=== PATIENT | male | born 1940 | race Caucasian/White ===

== ENCOUNTER → 2016-08-19 | Outpatient (CLI) | payer OTHER | LOC: MMPC 11:11 | PROVIDERS: ATTEND Internal Medicine | DX: I10 Essential (primary) hypertension (principal); N40.1 Benign prostatic hyperplasia with lower urinary tract symptoms; M81.0 Age-related osteoporosis without current pathological fracture; H35.30 Unspecified macular degeneration | CPT/HCPCS: 99214; G0463 ==

== ENCOUNTER → 2016-09-24 | Outpatient (CLI) | payer OTHER | LOC: MMPC 11:11 | PROVIDERS: ATTEND Internal Medicine | DX: K52.1 Toxic gastroenteritis and colitis (principal) | CPT/HCPCS: 99213; G0463 ==

== ENCOUNTER → 2016-11-12 | Outpatient (CLI) | payer OTHER | LOC: MMPC 11:11 | PROVIDERS: ATTEND Internal Medicine | DX: M81.0 Age-related osteoporosis without current pathological fracture (principal) | CPT/HCPCS: G0463; J0897 ==

== ENCOUNTER → 2017-02-11 | Outpatient (CLI) | payer OTHER ==
[2017-02-11 09:31] LABS: BASOPHILS # (AUTO) 0.05 10*3/UL; EOSINOPHILS # (AUTO) 0.11 10*3/UL; EOSINOPHILS % (AUTO) 2.2 % (0-8); HEMATOCRIT 43.9 % (42.0-52.0); HEMOGLOBIN 13.9 g/dL (14.0-18.0); LYMPHOCYTES # (AUTO) 1.43 10*3/uL; MEAN CORPUSCULAR HEMOGLOBIN 28.9 PG (27-31); MEAN CORPUSCULAR HGB CONC 31.7 g/dL (33-37); MEAN CORPUSCULAR VOLUME 91.3 FL (80-90); NEUTROPHILS % (AUTO) 58.1 % (50-80); RED BLOOD COUNT 4.81 10^6/uL (4.70-6.10)
[2017-02-11 09:53] LABS: CHOL/HDL RATIO 2.4 RATIO (0-4.0)
[2017-02-11 10:31] LABS: PLATELET MORPHOLOGY COMMENT NORMAL MORPHOLOGY (NORM); RBC MORPHOLOGY COMMENT NORMAL MORPHOLOGY (NORM); WBC MORPHOLOGY COMMENT NORMAL MORPHOLOGY (NORM)
== END ==
LOC: LAB 08:31
PROVIDERS: ATTEND Internal Medicine
DX: I10 Essential (primary) hypertension (principal); E03.9 Hypothyroidism, unspecified; M81.0 Age-related osteoporosis without current pathological fracture; N40.1 Benign prostatic hyperplasia with lower urinary tract symptoms; R35.1 Nocturia; Z12.5 Encounter for screening for malignant neoplasm of prostate
CPT/HCPCS: 36415; 80053; 80061; 82306; 84443; 85025; G0103

== ENCOUNTER → 2017-02-17 | Outpatient (CLI) | payer OTHER | LOC: MMPC 11:11 | PROVIDERS: ATTEND Internal Medicine | DX: I10 Essential (primary) hypertension (principal); E03.9 Hypothyroidism, unspecified; N40.1 Benign prostatic hyperplasia with lower urinary tract symptoms; E87.8 Other disorders of electrolyte and fluid balance, not elsewhere classified; H35.30 Unspecified macular degeneration; H40.9 Unspecified glaucoma; H91.91 Unspecified hearing loss, right ear | CPT/HCPCS: 69209 ×2; 99214; G0463 ==

== ENCOUNTER → 2017-03-19 | Outpatient (CLI) | payer OTHER | LOC: MMPC 09:00 | DX: R51 Headache (principal); I73.89 Other specified peripheral vascular diseases | CPT/HCPCS: 99212; G0463 ==

== ENCOUNTER 2017-05-19 17:13 | Inpatient (IN) ==
[2017-05-19] MEDS ORDERED: Sodium Chloride 0.9% 1,000 ML PRIMARY IV ONE (17:38)
[2017-05-19] MEDS ORDERED: NORMAL SALINE 10 ML SYRINGE FLUSH IVP PRN (17:38)
[2017-05-19 17:45] LABS: BASOPHILS # (AUTO) 0.02 10*3/UL; BASOPHILS % (AUTO) 0.1 % (0-1); EOSINOPHILS # (AUTO) 0 10*3/UL; EOSINOPHILS % (AUTO) 0 % (0-8); Hematocrit [HCT] 40.5 % (42.0-52.0); Hemoglobin [HGB] 13.3 g/dL (14.0-18.0); LYMPHOCYTES # (AUTO) 1.11 10*3/uL; MEAN CORPUSCULAR HEMOGLOBIN 29.2 PG (27-31); MEAN CORPUSCULAR HGB CONC 32.8 g/dL (33-37); MEAN PLATELET VOLUME 10.8 FL (7.4-12.2); MONOCYTES % (AUTO) 11.4 % (5-15); NEUTROPHILS # (AUTO) 13.58 10*3/UL; NEUTROPHILS % (AUTO) 81.4 % (50-80); RED BLOOD COUNT 4.55 10^6/uL (4.70-6.10)
[2017-05-19 17:48] LABS: PLATELET MORPHOLOGY COMMENT NORMAL MORPHOLOGY (NORM); RBC MORPHOLOGY COMMENT NORMAL MORPHOLOGY (NORM); WBC MORPHOLOGY COMMENT NORMAL MORPHOLOGY (NORM)
--- NOTE | 2017-05-19 17:52 | EKG ---
[address] [address] Measurements Intervals [place] Rate: 88 P: 74 MI: 179 QRS: 84 QRSD: 97 T: 73 QT: 347 QTc: 392 Interpretive Statements SINUS RHYTHM ST CHANGES OF EARLY REPOLARIZATION Compared to ECG 01/26/2014 09:53:38 No significant change Electronically Signed On 05-20-17 08:49:57 MDT by Dion Shabazz [email or web address]
[2017-05-19 18:25] LABS: BLOOD UREA NITROGEN 26 mg/dL (7-22); MAGNESIUM 3.2 mg/dL (1.6-2.4); SERUM ALBUMIN 3.5 g/dL (3.5-4.8)
--- NOTE | 2017-05-19 18:49 | DI ---
CT Head WO Contrast,05/19/2017 5:38 PM: Clinical History: Status post fall on Friday. Previous Exam: July 08, 2014 Findings: Multiple helically acquired CT images are obtained through the brain without contrast, and demonstrat e diffuse age-related volume loss. There is no mass, hemorrhage or midline shift. The surrounding sof t tissue and osseous structures are unremarkable. There are few vascular calcifications noted. Impression: No acute intracranial pathology.
--- NOTE | 2017-05-19 20:50 | DI ---
EXAM: CT Angiography Chest Without and With Intravenous Contrast CLINICAL HISTORY: fall, elevated d-dimer: TECHNIQUE: Axial computed tomographic angiography images of the chest without and with intravenous contrast using pulmonary embolism protocol. Coronal and sagittal reformats were obtained. MIP reconstructed images were created and reviewed. COMPARISON: No relevant prior studies available. FINDINGS: Pulmonary arteries: Unremarkable. No pulmonary embolism. Aorta: No thoracic aortic aneurysm. Lungs: Unremarkable. No mass. No consolidation. Pleural space: Unremarkable. No significant effusion. No pneumothorax. Heart: Trace pericardial fluid. . Bones/joints: Chronic fracture deformity of the upper sternum Lymph nodes: Few calcified mediastinal and hilar lymph nodes, likely sequelae of prior granulomatous disease. Several small mediastinal lymph nodes are present, none pathologically enlarged. Gallbladder and bile ducts: Gallbladder is markedly distended with surrounding pericholecystic fat stranding and trace fluid. Findings suspicious for acute cholecystitis. Spleen: Several small calcified granulomas in the Spleen. IMPRESSION: 1. No pulmonary embolism detected. 2. Gallbladder is markedly distended with surrounding pericholecystic fat stranding and trace fluid. Findings are suspicious for acute cholecystitis. Correlate with symptoms and consider ultrasound for further evaluation.
[2017-05-19 21:19] LABS: BILIRUBIN,URINE NEGATIVE (NEG); CLARITY,URINE CLEAR (CLEAR); COLOR,URINE YELLOW (Y); GLUCOSE, URINE (UA) NEGATIVE (NEG); NITRATE,URINE NEGATIVE (NEG); OCCULT BLOOD,URINE NEGATIVE (NEG); PROTEIN,URINE TRACE mg/dl (NEG); URINE SAMPLE TYPE VOIDED SPECIMEN; UROBILINOGEN,URINE 0.2 EU/dL (0.2)
--- NOTE | 2017-05-19 23:59 | PDOC ---
HPI - History of Present Illness Date and Time of Service: 05/20/2017 12:47 AM Chief Complaint: Fell multiple times, weak History of Present Illness: This is a 76 years old male with medical history significant for history of hypertension, gout,, macular degeneration, hearing loss, hypothyroidism who was brought to the hospital by an ambulance because he fell multiple times. He said he has issues with his balance secondary to her large nerve neuropathy being going on for quite a few years but over the last 3 days been falling more often. He is struggling to get up. In addition he did report that on Friday he went to the urgent clinic and then to the ER as he was having some abdominal discomfort and he thought that he was constipated they gave him magnesium citrate. He did have some loose stool today. He is having trouble remembering the exact timing of events. He is not sure whether he had fever or not. Today because of the multiple fall he was brought to the ER, evaluation revealed elevated white count, hyponatremia CT of the chest done for elevated d-dimer was negative for PE but showed distended gallbladder an ultrasound was done and that showed distended gallbladder with the edema. The patient himself is denying abdominal pain now no nausea no vomiting. Past Medical History Medical History: 1. Hypertension. 2. Hypothyroidism. 3. Osteoporosis. 4. Macular degeneration. 5. BPH. 6. Hearing loss. 7. Depression. 8. History of large fiber neuropathy Surgical History: 1.bilateral stapedectomy with replacement stapes. 2. Dilatation of distal esophagus Past Social History: Patient lives by himself, doesn't drink, no drugs. Doesn' t smoke. Tobacco Use: Never Smoker In the Past 12 Months, Have Used or Abuse Any of the Following Substance: None Alcohol Use: Rarely Medication / Allergies Home Medications: Home Medications Medication Instructions Recorded Confirmed Type Dorzolamide HCl/Timolol Maleat 1 drp OP BID 1 Days drp 10/25/11 05/20/17 History [Cosopt Eye Drops] Betaxolol HCl [Betoptic S] 2 drp OP BID 30 Days drp 09/22/12 05/20/17 History Guaifenesin [Mucinex] 1,200 mg PO BID #1 bottle 11/12/12 05/20/17 History Finasteride 5 mg PO DAILY tab 07/08/14 05/20/17 History Ranibizumab [Lucentis] 0.5 mg INVTRL MONTHLY ml 07/08/14 05/20/17 History Denosumab [Prolia] 60 mg SUBCUT ONCE #1 ml 08/19/16 05/20/17 History Levothyroxine Sodium 75 mcg PO DAILY #90 tab 08/19/16 05/20/17 History Lisinopril 1 tab PO DAILY #90 tab 08/19/16 05/20/17 Rx Travoprost [Travatan Z] 1 drp OP DAILY drp 08/19/16 05/20/17 History Tobramycin Sulf/Dexamethasone 1 drp OP q48 drp 02/17/17 05/20/17 History [Tobradex Eye Drops] Citalopram Hydrobromide 20 mg PO DAILY 05/19/17 05/20/17 History [Citalopram Hbr] Allergies/Adverse Reactions: Allergies 3 Allergy/AdvReac Type Severity Reaction Status Date / Time Cucumbers Allergy Mild NAUSEA Uncoded 05/20/17 08:44 Melons Allergy Mild NAUSEA Uncoded 05/20/17 08:44 Review of Systems - Review of Systems All Systems: Reviewed & No Additional Complaints Except as Stated Exam - General General Appearance: No Acute Distress, Cooperative Additional General Exam Details: Patient is hard of hearing - Head Head Exam: Normal Inspection - Eye Eye Exam: POSITIVE: Normal Appearance - ENT ENT Exam: POSITIVE: Normal Exam - Neck Neck Exam: Normal Inspection - Respiratory Respiratory Exam: POSITIVE: Clear to Auscultation - Bilaterally - Cardiovascular Cardiovascular Exam: POSITIVE: RRR - GI/Abdominal GI/Abdominal Exam: POSITIVE: Normal Bowel Sounds, Non Tender, Non Distended, Soft - Rectal Rectal Exam: POSITIVE: Deferred - External Exam: POSITIVE: Deferred - Extremities Extremities Exam: POSITIVE: Normal Inspection - Back Back Exam: POSITIVE: Normal Inspection - Neurological Neurological Exam: POSITIVE: Alert, CN II-XII Intact, Moves All Extremities Equally Additional Neurological Exam Details: He knows the day, he thought it was June and he did know the year. He knows he is in the hospital. still have problems telling events over the previous 2 days - Psychiatric Psychiatric Exam: POSITIVE: Normal Affect - Integumentary Integumentary Exam: POSITIVE: Normal Color Results - Labs CBC and BMP: 05/20/17 04:12 05/20/17 04:12 - EKG Data -: EKG Interpreted by Me Rate: Normal EKG Shows Normal: Sinus Rhythm - EKG Data EKG Interpretation: Other (Changes of early repolarization) - Imaging Status: Report Reviewed by Me (CT of the chest showed no PE, gallbladder is markedly distended with surrounding pericholecystic fat stranding and trace fluid. Finding is suspicious for acute cholecystitis Ultrasound abdomen showed distended gallbladder with gallstones and gallbladder sludge. Gallbladder wall appears edematous. Finding are suspicious for acute cholecystitis CT of the head was negative) Assessment and Plan - Patient Problems (1) Multiple falls Current Visit: Yes Status: Acute Comment: This may be secondary to his underlying disease such as her neuropathy. or may be a superimposed condition not sure whether he has a cholecystitis but will give him fluid in treat with antibiotics for now. Code(s): R29.6 - Repeated falls (2) Cholecystitis Current Visit: Yes Status: Acute Comment: The patient having trouble remembering events, apparently did have some issues with his abdomen on Friday he went to the ER but he was attributing that to constipation. He is denying abdominal pain now no nausea. However his white count is elevated, his CRP is elevated, the CT of the chest revealed distended gallbladder and the ultrasound also showed distended gallbladder with sludge and cholelithiasis. I think will give him antibiotics may consult surgery in the morning. Clinically however there is no tenderness in the abdomen so it's hard to fit the imaging and the lab with the lack of symptoms Code(s): K81.9 - Cholecystitis, unspecified (3) Hypertension Current Visit: Yes Status: Acute Comment: Same medications Code(s): I10 - Essential (primary) hypertension (4) Hypothyroidism Current Visit: Yes Status: Acute Comment: Same med Code(s): E03.9 - Hypothyroidism, unspecified
--- NOTE | 2017-05-20 00:07 | DI ---
EXAM: US Abdomen Limited, Right Upper Quadrant CLINICAL HISTORY: Distended gallbladder on CT TECHNIQUE: Real-time ultrasound of the right upper quadrant with image documentation. COMPARISON: CTA chest 05/19/17 FINDINGS: Limitations: Exam limited due to overlying bowel gas. Liver: No focal hepatic mass detected. Gallbladder: Gallbladder is distended with sludge and gallstones. Gallbladder wall is thickened (measured as 3 mm, although there appears to be other areas where the wall is more edematous). Per pbx technician, negative sonographic [place]thing[place] sign. Common bile duct: No biliary dilatation. Common duct within normal limits, 3 mm in diameter. Pancreas: Not visualized. Right kidney: Not imaged. IMPRESSION: 1. Limited exam due to overlying bowel gas. 2. Distended gallbladder with gallstones and gallbladder sludge. Gallbladder wall appears edematous. Findings are suspicious for acute cholecystitis. Correlate with symptoms and consider HIDA scan if necessary for further evaluation. 3. No biliary dilatation.
--- NOTE | 2017-05-20 01:04 | PDOC ---
General Adult HPI - General Chief Complaint: General Medical Stated Complaint: fall, weakness Date Seen by Provider: 05/19/17 Time Seen by Provider: 17:35 Source: POSITIVE: Patient, EMS Exam Limitations: POSITIVE: No limitations Nurse's Notes Reviewed & Considered: Yes EMS Report Reviewed & Considered: Verbal - History of Present Illness Initial Comment: The patient is a 76-year-old male. He is brought to the emergency room by ambulance from his residence. The patient lives alone. He states that today he fell at home 3 times and was unable to get up. He called his home health nurse, who called the patient's primary care physician, Dr. Lara, who called the ambulance that brought the patient into the emergency room. Patient states that he also fell once yesterday. Patient denies any loss of consciousness. He states that he chest "he is too weak to stand up and he has been falling. He does states he has a mild circumferential headache. He denies any chest or abdominal pain. He states he's not injured himself in the falls, although he does complain of some "soreness to the knees and elbows "from trying to get up from the floor. Patient denies any fevers or chills. No nausea, vomiting, diarrhea, melena, hematochezia, or hematemesis. No difficulty speaking. He states he has diminished vision due to macular degeneration and glaucoma. No focal motor deficits. He states he is just "weak all over ". Have you received a tetanus shot in the past 10 years?: No Body Location Affected: REPORTS: Head (Mild headache), Other (Generalized weakness as above) Timing: REPORTS: Intermittent (Return episodes of falling and not able to get up as above.) Duration: <24 hours Severity: Moderate Quality: REPORTS: "Pain" (Mild circumferential headache) Context: REPORTS: Standing (Episodes of falling recur when he stands up and attempts to ambulate.), Fall Modifying Factors: worse with: Nothing, Analgesics, Antacids, Breathing, Coughing, Defecating, Vomiting, Eating, Exercise, Lying down, Urinating, Palpation, Movement, Rest, Upright Position, Walking, Remaining Still, Other Similar Symptoms Previously: No Recent Care Received: REPORTS: Denies Any Prior Injuries Related to Current Complaint?: No - Patient Home Medications Home Medications: Home Medications Dorzolamide HCl/Timolol Maleat [Cosopt Eye Drops] 1 drp OP BID 1 Days drp 10/24 Betaxolol HCl [Betoptic S] 2 drp OP BID 30 Days drp 09/22/12 Guaifenesin [Mucinex] 1,200 mg PO BID #1 bottle 11/12/12 Finasteride 5 mg PO DAILY tab 07/08/14 Ranibizumab [Lucentis] 0.5 mg INVTRL MONTHLY ml 07/08/14 Denosumab [Prolia] 60 mg SUBCUT ONCE #1 ml 08/19/16 Levothyroxine Sodium 75 mcg PO DAILY #90 tab 08/19/16 Lisinopril 1 tab PO DAILY #90 tab 08/19/16 Travoprost [Travatan Z] 1 drp OP DAILY drp 08/19/16 Tobramycin Sulf/Dexamethasone [Tobradex Eye Drops] 1 drp OP q48 drp 02/17/17 Citalopram Hydrobromide [Citalopram Hbr] 20 mg PO DAILY 05/19/17 - Patient Allergies Allergies/Adverse Reactions: Allergies 3 Allergy/AdvReac Type Severity Reaction Status Date / Time Cucumbers Allergy Mild NAUSEA Uncoded 05/20/17 00:18 Melons Allergy Mild NAUSEA Uncoded 05/20/17 00:18 Past Medical History - heen HEENT History: Glaucoma Additional HEENT History: DENIES MENIERE'S BUT REPORTS VERTIGO Cardiovascular History: Hypertension Respiratory History: Denies History Gastrointestinal History: Denies History Genitourinary History: Denies History Endocrine History: Hypothyroidism Musculoskeletal History: Denies History Prosthesis or Implant: No Neurological History: Other (please comment) Additional Neurological History: VERTIGO/ LOSS OF PROPRIOCEPTION, STAPEES REPLACED BILAT EARS Blood Disorders: Denies History Psychiatric History: Depression History of Sexually Transmitted Diseases: No Male Reproductive History: Denies History Cancer History: Denies History In Past Year Been Physically Harmed or Verbally Threatened: No History of MDRO: No History of Other Communicable Diseases: No Tobacco Use: Never Smoker Alcohol Use: Rarely Type of alcohol normally used: Beer In the Past 12 Months, Have Used or Abuse Any Substance: None Previous Surgical History: Yes Type / Date of Surgery: STAPEES REPLACED BILAT EARS, LAZER SURGERY FOR DETACHED RETINA, T&A Anesthesia Reactions: No Significant Family History: No pertinent family hx Past Medical History Reviewed: Reviewed - No Changes ROS - Limitations ROS Limitations: No Limitations Constitution: REPORTS: Weakness Cardiovascular: REPORTS: Denies Cardiac Symptoms Respiratory: REPORTS: Denies Resp Symptoms Neurological: REPORTS: Headache Gastrointestinal: REPORTS: Denies GI Symptoms Endocrine: REPORTS: Denies Symptoms Musculoskeletal: REPORTS: Denies MS Symptoms Genitourinary: REPORTS: Denies Symptoms Eyes: REPORTS: Denies Symptoms ENT: REPORTS: Denies Symptoms Skin: REPORTS: Denies Skin Symptoms Lympathic: REPORTS: Denies Lympathic Symptoms Immunologic: POSITIVE: Denies Symptoms Psychiatric: POSITIVE: Denies Psych Symptoms General Adult Exam - General Appearance General Appearance: POSITIVE: Alert, Cooperative, No Acute Distress, No Evidence of Trauma - HEENT HEENT: POSITIVE: Head Inspection Nml, Eyes Inspection Nml, Ears Inspection Nml, Nose Inspection Nml, Oral/Dental Inspect. Nml, Pharynx Inspect. Nml, PERRL, EOMI - Pupils Pupil Size: 3 mm: Bilateral - Neck Neck: POSITIVE: Normal Inspection, Thyroid Normal - Respiratory Respiratory: POSITIVE: No Respiratory Distress, Breath Sounds Normal, Chest Non- Tender - Cardiovascular Cardiovascular: POSITIVE: Regular Rate & Rhythm, No Murmur, No Gallop, PMI Normal Peripheral Pulses: Radial (R): 2+, Radial (L): 2+ - Abdomen Abdomen: Soft: (All Quadrants), Normal Bowel Sounds: (All Quadrants), Denies Tenderness: (All Quadrants), No Splenomegaly: (All Quadrants), No Hepatomegaly: (All Quadrants), No Guarding: (All Quadrants), No Rebound: (All Quadrants), No Palpable Pulse: (All Quadrants), No Palpabale Mass: (All Quadrants), No Distention: (All Quadrants), No Rigidity: (All Quadrants) - Back Back: POSITIVE: Normal Inspection - Skin Skin: POSITIVE: Normal Color, Warm, Dry, No Rash - Extremities Extremity: Non-Tender: (All Extremities), Normal ROM: (All Extremities), Normal Inspection: (All Extremities) - Neurological / Psychological Neurological: POSITIVE: Affect Apporpriate, hospital internship Normal As Tested, Motor Normal, Sensation Normal, Disoriented To Time, Weakness (Generalized weakness), Other ( Patient unable to accurately identify the month. He does not recall who the president is.). NEGATIVE: Disoriented To Person, Disoriented To Place General Adult Progress - Results Reviewed by me Xrays/CTs/US Reviewed by me: Yes Discussed with Radiologist: Yes Radiology Findings: Chest x-ray normal; CT a chest normal except for incidentally noted possible inflammation around the gallbladder. Subsequent gallbladder ultrasound shows gallbladder to be distended with gallstones and sludge. Gallbladder wall appears edematous. Patient does not, however, have any abdominal pain. CT scan head without contrast normal. Lab Results Reviewed by Me: Yes CBC and BMP: 05/19/17 17:05 05/19/17 18:00 EKG Interpreted/Reviewed By Me:: Yes (normal) EKG Interpretation:: POSITIVE: Normal Sinus Rhythm, Normal Rate, Normal Intervals, Normal [place], Normal QRS, Normal ST/T - Patient's Progress Pain Medication Addressed: POSITIVE: Not Applicable Re-Examine Time: 20:00 Re-Examine Comment: Patient resting comfortably; abdominal examination repeated in view of CT scan results; patient denies any pain on firm palpation. Hepatic enzymes normal except for mildly elevated alkaline phosphatase and a total bilirubin of 1.4 Re-Examine Time:: 23:10 Re-Examine Comment: Case discussed with the hospitalist, Dr. Cornelius. Patient admitted to Dr. Cornelius for further evaluation and treatment. Status: POSITIVE: Unchanged, Re-Examined Antibiotics Given: No - Consult Consult (If Yes, Name of Consulting MD & Time Called): Yes (Dr. Cornelius, hospitalist, [id number]) Consulting MD will see pt:: POSITIVE: [facility] [place] Counseled: POSITIVE: Patient, RE: Lab Results, RE: Radiology Results, RE: DX, RE : Need for F/U Patient Care Time - Estimated PCT Patient Care Time (In Minutes): 75 Vital Signs - Recent Vital Signs Vital Signs: Vital Signs (Last 8 hours) Temp Pulse Resp BP Pulse Ox 05/19/17 17:13 99.5 F 94 16 123/75 94 Discharge Clinical Impression: Falls frequently, Weakness Discharge Disposition: Admit to Inpatient Condition: Fair Date Decision to Admit to Inpatient: 05/19/17 Time Decision to Admit to Inpatient: 22:55
[2017-05-20] MEDS: Ertapenem Inj 1 GM in Sodium Chloride 0.9% 100 ML IV SCH (01:35)
[2017-05-20] MEDS: Sodium Chloride 0.9% 1,000 ML PRIMARY IV SCH ×3 (01:35→23:07)
[2017-05-20 04:27] LABS: BASOPHILS # (AUTO) 0.01 10*3/UL; BASOPHILS % (AUTO) 0.1 % (0-1); EOSINOPHILS # (AUTO) 0 10*3/UL; EOSINOPHILS % (AUTO) 0 % (0-8); Hematocrit [HCT] 38.7 % (42.0-52.0); Hemoglobin [HGB] 12.7 g/dL (14.0-18.0); LYMPHOCYTES # (AUTO) 1.07 10*3/uL; MEAN CORPUSCULAR HEMOGLOBIN 29.1 PG (27-31); MEAN CORPUSCULAR HGB CONC 32.8 g/dL (33-37); MEAN CORPUSCULAR VOLUME 88.8 FL (80-90); MEAN PLATELET VOLUME 10.5 FL (7.4-12.2); MONOCYTES # (AUTO) 1.44 10*3/UL (0.3-0.8); MONOCYTES % (AUTO) 12.4 % (5-15); NEUTROPHILS # (AUTO) 9.08 10*3/UL; RED BLOOD COUNT 4.36 10^6/uL (4.70-6.10)
[2017-05-20] MEDS: LEVOTHYROXINE 75 MCG TABLET PO SCH (04:31)
[2017-05-20 04:40] LABS: BLOOD UREA NITROGEN 21 mg/dL (7-22); SERUM ALBUMIN 3.1 g/dL (3.5-4.8)
[2017-05-20 04:42] LABS: PLATELET MORPHOLOGY COMMENT NORMAL MORPHOLOGY (NORM); RBC MORPHOLOGY COMMENT NORMAL MORPHOLOGY (NORM); WBC MORPHOLOGY COMMENT NORMAL MORPHOLOGY (NORM)
[2017-05-20] MEDS: CITALOPRAM 20 MG TABLET PO SCH (08:24)
[2017-05-20] MEDS: FINASTERIDE 5 MG TABLET PO SCH (08:24)
[2017-05-20] MEDS: LISINOPRIL 5 MG TABLET PO SCH (08:24)
[2017-05-20] MEDS ORDERED: BETAXOLOL HCL OP SCH (09:00)
--- NOTE | 2017-05-20 09:03 | DI ---
XR CXR 2VW PA/LAT,05/19/2017 5:38 PM: Clinical History: Weakness Previous Exam: January 26, 2014 Findings: PA and lateral views of the chest are obtained, and demonstrate clear lungs. The cardiomediastinum an d bony thorax are unremarkable. There is stable degenerative changes of the spine. Impression: No acute cardiopulmonary disease.
--- NOTE | 2017-05-20 09:25 | PDOC(PROG) ---
Date and Time of Service: 05/20/2017 9:29 AM Interval History: Objective Patient is denying complaint, there is no abdominal pain, no nausea. No chest pain, no shortness of breath. Objective : Data - Labs CBC and BMP: 05/20/17 04:12 05/20/17 04:12 Objective : Exam - General General Appearance: No Acute Distress, Cooperative - Head Head Exam: Normal Inspection - Eye Eye Exam: Normal Appearance - ENT ENT Exam: Normal Exam - Neck Neck Exam: Normal Inspection - Respiratory Respiratory Exam: Clear to Auscultation - Bilaterally - Cardiovascular Cardiovascular Exam: RRR - GI/Abdominal GI/Abdominal Exam: Normal Bowel Sounds, Non Tender, Non Distended, Soft - Rectal Rectal Exam: Deferred - External Exam: Deferred - Extremities Extremities Exam: Normal Inspection - Back Back Exam: Normal Inspection - Neurological Neurological Exam: Alert, CN II-XII Intact Additional Neurological Exam Details: He is somewhat weak on the left compared to the right lower extremities, reflexes are depressed. - Psychiatric Psychiatric Exam: Normal Affect Assessment and Plan - Patient Problems (1) Multiple falls Current Visit: Yes Status: Acute Comment: May be secondary to neuropathy or there may be a superimposed condition. Not sure whether he has a acute cholecystitis as he is denying pain in his abdomen and it's not tender. I did speak with the Dr. Gomez he will see him. Code(s): R29.6 - Repeated falls (2) Cholecystitis Current Visit: Yes Status: Acute Comment: His clinical symptoms now does not match the imaging findings. I elected to start him on antibiotics I think will continue until surgical evaluation. We will keep him on clear for now. Code(s): K81.9 - Cholecystitis, unspecified (3) Hypertension Current Visit: Yes Status: Acute Comment: Same medications Code(s): I10 - Essential (primary) hypertension (4) Hypothyroidism Current Visit: Yes Status: Acute Comment: Same med Code(s): E03.9 - Hypothyroidism, unspecified
--- NOTE | 2017-05-20 11:08 | CONSULT ---
Consult Note - Consult Consult Date: 05/20/17 Reason for Consult: PreOp Consulation : General Surgery Requesting Physician: Dr. Cornelius Primary Care Provider: Raghav Lara MD - History of Present Illness History of Present Illness: The patient is a 76-year-old male in asked to see for possible acute cholecystitis. Patient reports he's had some minor abdominal issues for the last several years. Reviewing the records he had an ultrasound back in January of 2014 which showed some flakes and sludge in the gallbladder. The gallbladder was distended. The wall was slightly thickened but within normal limits. The common bile duct was 3 mm in size. On Friday the patient presented to the open access clinic followed by the emergency room for some mild abdominal discomfort and a feeling of being constipated. He had an abdominal x-ray which is read as normal but there was a lot of stool within the bowel. He took some magnesium citrate and got back on his MiraLAX with good results. He went home. A home manager reported he was falling more than usual at home on Friday and recommended he go to the emergency room. The patient presented to the emergency room for the same. He was seen for falling and weakness. He had a CT of his head which was unremarkable. Her lab work showed an elevation of his white count at 16,400. Get a minor elevation of his bilirubin to 1.4 and a minor elevation of his alkaline phosphatase to 150. His AST and ALT were normal. He had an elevated C -reactive protein and an elevated d-dimer. He had a CTA of his chest which showed no evidence of a pulmonary embolism but they commented that his gallbladder was distended and looked thick walled. Subsequent ultrasound showed a distended gallbladder with a 3 mm wall and a lot of sludge in the gallbladder. The common bile duct was normal. There is possibly a solitary stone floating in the bile. He had a sonographically negative Worthington sign. I have asked our local radiologist to compare the 2 ultrasounds. There is possibly increased wall thickening. He feels the gallbladder looks abnormal but there is no obvious acute cholecystitis. A 3 mm wall is technically within normal limits of thickness. The patient was hydrated overnight. He was given a gram of Invanz. This morning his white count has decreased to 11,000 range. His bilirubin and alkaline phosphatase are down as well. I am asked to see him about whether or not he has acute cholecystitis or not. Patient reports he is having no abdominal pain. He is hungry. He feels like he needs to go to the bathroom. He does not feel bloated. Review of Systems - Gastrointestinal Gastrointestinal / Abdominal: DENIES: Negative System Review, Nausea, Vomiting, Diarrhea, Constipation, Abdominal Pain, Bloody Stool, Poor Appetite, Heartburn, Regurgitation, Bloating, Lactose Intolerance, Melena, Bright Red Blood per Rectum, Other, See HPI Past Medical History Medical History: 1. Hypertension. 2. Hypothyroidism. 3. Osteoporosis. 4. Macular degeneration. 5. BPH. 6. Hearing loss. 7. Depression. 8. History of large fiber neuropathy Surgical History: 1. Bilateral stapedectomy with replacement stapes. 2. Dilatation of distal esophagus. 3. Colonoscopy 2. Normal by report. 4. Bilateral cataract extractions. Past Social History: Patient lives by himself, doesn't drink, no drugs. Doesn' t smoke. Tobacco Use: Never Smoker In the Past 12 Months, Have Used or Abuse Any of the Following Substance: None Alcohol Use: Rarely Medication / Allergies Home Medications: Home Medications Medication Instructions Recorded Confirmed Type Dorzolamide HCl/Timolol Maleat 1 drp OP BID 1 Days drp 10/25/11 05/20/17 History [Cosopt Eye Drops] Betaxolol HCl [Betoptic S] 2 drp OP BID 30 Days drp 09/22/12 05/20/17 History Guaifenesin [Mucinex] 1,200 mg PO BID #1 bottle 11/12/12 05/20/17 History Finasteride 5 mg PO DAILY tab 07/08/14 05/20/17 History Ranibizumab [Lucentis] 0.5 mg INVTRL MONTHLY ml 07/08/14 05/20/17 History Denosumab [Prolia] 60 mg SUBCUT ONCE #1 ml 08/19/16 05/20/17 History Levothyroxine Sodium 75 mcg PO DAILY #90 tab 08/19/16 05/20/17 History Lisinopril 1 tab PO DAILY #90 tab 08/19/16 05/20/17 Rx Travoprost [Travatan Z] 1 drp OP DAILY drp 08/19/16 05/20/17 History Tobramycin Sulf/Dexamethasone 1 drp OP q48 drp 02/17/17 05/20/17 History [Tobradex Eye Drops] Citalopram Hydrobromide 20 mg PO DAILY 05/19/17 05/20/17 History [Citalopram Hbr] Allergies/Adverse Reactions: Allergies 3 Allergy/AdvReac Type Severity Reaction Status Date / Time Cucumbers Allergy Mild NAUSEA Uncoded 05/20/17 08:44 Melons Allergy Mild NAUSEA Uncoded 05/20/17 08:44 Results - Labs CBC and BMP: 05/20/17 04:12 05/20/17 04:12 - Imaging Status: Image Reviewed by Me (And discussed with the radiologist. See history of present illness.), Report Reviewed by Me Exam - Vitals Vital Signs: Vital Signs Temperature 98.6 F Temperature Source Temporal Artery Scan Pulse Rate [Pulse Oximeter 87 Right] Pulse Rate 89 Respiratory Rate 20 Blood Pressure [Left Arm] 142/70 Blood Pressure 153/93 Pulse Ox 92 Oxygen Delivery Method Room Air Height 5 ft 7 in Weight 143 lb 3.2 oz - General General Appearance: No Acute Distress, Cooperative - Respiratory Respiratory Exam: POSITIVE: Clear to Auscultation - Bilaterally, Breathing Non Labored - Cardiovascular Cardiovascular Exam: POSITIVE: RRR, No Murmur - GI/Abdominal GI/Abdominal Exam: POSITIVE: Normal Bowel Sounds, Non Tender, Non Distended, Soft, No Masses, No Organomegaly Additional GI/Abdominal Exam Details: Total benign abdominal exam. No tenderness. No Worthington's. - Neurological Neurological Exam: POSITIVE: Alert, Oriented x 3 - Psychiatric Psychiatric Exam: POSITIVE: Normal Affect, Normal Mood Assessment and Plan - Patient Problems (1) Abnormal gallbladder ultrasound Current Visit: Yes Status: Chronic Priority: Medium Comment: In actuality his gallbladder ultrasound was not that much different than it was in January 2014. Patient has no clinical evidence of acute cholecystitis. I think his gallbladder is abnormal and should give some consideration to elective cholecystectomy. That does not have to be done acutely. I think he can recover from his current hospitalization and see me in the office. We can then discuss the feasibility of surgery with his primary care provider, Dr. Lara, and he can discuss it with his family as well. He is not interested in surgery that is not absolutely necessary. I don't think there is any indication that he needs acute surgery at this time. Would consider one more dose of the antibiotics as he did have an elevated white count. We will check his liver function tests again in the morning. I will check him again tomorrow. At the present time will recommend outpatient follow- up in the next week or two following discharge. Code(s): R93.2 - Abnormal findings on diagnostic imaging of liver and biliary tract
[2017-05-20] MEDS ORDERED: POLYETHYLENE GLYCOL 3350 17 GM POWDER PO PRN (12:16)
--- NOTE | 2017-05-20 16:47 | OTI REPORT ---
Thank you for the referral of Howard Persaud. He was seen on 05/20/17 for an occupational therapy inpatient evaluation secondary to falls at home. SUBJECTIVE: The patient is a 76-year-old male who is being seen today secondary to having multiple falls at home. The last week the patient has had a lot of falls. The patient lives at home by himself. He states that he has been in his home since the 1970s. It is a single story home. The patient states about a month ago he felt his legs became weaker; he does have bad neuropathy. The patient states approximately 20 years ago he had to have a stapes surgery where they took out his stapes and replaced them and he states ever since then his balance has been very poor. 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 His right eye has better vision but it is not great. The patient does wear glasses for distance. The patient does have a tub/shower combination. [employer] has set up a shower chair, a hand held shower hose, and three grab bars. He says he has not been having difficulty getting off of his standard toilet. The patient reports that he has three different walkers; one for his home, one for the car, and one for out in public. He reports that recently he has been driving; however, he only drives during the day. The patient has been hiring the [employer] folks to help him run his errands and to get to his appointments in [place]. The patient has also hired them to do some of his outdoor work. The [employer] comes in once a week to do his cleaning. The patient reports he does his own laundry and some of the cooking; however, he states he likes to eat either at the hospital, the [facility], or out at restaurants. Prior to this admission the patient had been doing his own grocery shopping, but he reports he may need more assistance with this. When taking his medications, sometimes he uses a magnifying glass to look at the medications, but he says he is in charge of them. He states he basically uses his tactile sensory components to perform most task throughout his day. The patient reports he is getting more unsafe. He states his right hand and fingers "freeze" and get really stiff. PAST MEDICAL HISTORY: Past medical history can be found in the patient's medical record. OBJECTIVE FINDINGS: General observations: The patient was sitting in chair upon the therapist's arrival. Range of motion: The patient's upper extremity range of motion is within functional limits bilaterally. Strength: Strength for shoulder flexion was 4/5, shoulder abduction was 3+/5, elbow flexion/extension was 4/5, and wrist flexion/extension was 4/5. Activities of daily living: The patient was able to don and doff his socks while sitting in recliner chair; however, he reports that he has leaned over too far and has fallen out of the chair when putting on his socks. The patient stated, "I never know when I'm vertical." When performing any task in standing , the patient requires mod to max assist to keep his balance. Transfers: The patient requires max assist for all functional transfers secondary to decreased balance. Ambulation: The patient ambulated to the bathroom for which he required max assist. He continually leaned backward and needed max assist to keep an upright posture. ASSESSMENT: The patient's vestibular system seems to have been greatly affected by his stapes surgery several years ago. At this point it is highly questionable whether the patient should be driving. The OT discussed with the patient that he will need more assistance at home; more than likely 24-hour assistance if he is able to afford this We may need to look at the [facility] based on the balance difficulties he demonstrated today. The patient agreed. He would like the case preparer and liner as well as his daughter, who is his power of civil attorney, to discuss some of his options later on. If the patient does return home, we need to look into a home evaluation. Problem List: Decreased balance Decreased ability to perform functional ADLs while in a standing position Short-Term Goals: To be met by discharge from inpatient: Patient will be able to obtain clothes and dress self with SBA. Patient will be able to complete a shower transfer and shower task with modified independence Patient will increase UE strength to 4+/5 throughout UE's. Patient will be able to complete a toilet transfer with SBA. Long-Term Goals: To be met following discharge from inpatient: Patient will be able to return home, with more assistance for ADL's and functional tasks at home 24 hours a day. Patient will be able to complete all functional transfers and ADL's with modified independence TREATMENT PLAN: Patient will be seen B.I.D during the week and one time per day over the weekend as an inpatient to address the above goals and objectives. INITIAL TREATMENT: Treatment today consisted of the initial evaluation followed by the patient completing dressing tasks while sitting edge of bed and a toilet transfer. The patient needed a lot of assistance in order to complete the toilet transfer. The patient had balance difficulties with the transfer and also when doffing and donning pants. MILAGROS
[2017-05-20] MEDS: BETAXOLOL EACH EYE SCH (20:00)
[2017-05-20] MEDS ORDERED: BETAXOLOL EACH EYE SCH (21:00)
[2017-05-21] MEDS: Ertapenem Inj 1 GM in Sodium Chloride 0.9% 100 ML IV SCH (00:56)
[2017-05-21] MEDS ORDERED: Hypromellose/Glycerin/PEG 400 Ophth Soln 15 ML DROPS EACH EYE PRN (01:44)
[2017-05-21] MEDS: ACETAMINOPHEN 325 MG TABLET PO PRN (04:11)
[2017-05-21] MEDS: LEVOTHYROXINE 75 MCG TABLET PO SCH (04:42)
[2017-05-21 05:13] LABS: BASOPHILS # (AUTO) 0.01 10*3/UL; BASOPHILS % (AUTO) 0.1 % (0-1); EOSINOPHILS # (AUTO) 0.02 10*3/UL; EOSINOPHILS % (AUTO) 0.2 % (0-8); Hematocrit [HCT] 35.3 % (42.0-52.0); Hemoglobin [HGB] 11.2 g/dL (14.0-18.0); LYMPHOCYTES # (AUTO) 0.79 10*3/uL; MEAN CORPUSCULAR HEMOGLOBIN 28.7 PG (27-31); MEAN CORPUSCULAR HGB CONC 31.7 g/dL (33-37); MEAN CORPUSCULAR VOLUME 90.5 FL (80-90); MEAN PLATELET VOLUME 11.3 FL (7.4-12.2); MONOCYTES # (AUTO) 1.08 10*3/UL (0.3-0.8); MONOCYTES % (AUTO) 11.9 % (5-15); NEUTROPHILS # (AUTO) 7.13 10*3/UL; NEUTROPHILS % (AUTO) 78.8 % (50-80)
[2017-05-21 05:41] LABS: PLATELET MORPHOLOGY COMMENT NORMAL MORPHOLOGY (NORM); RBC MORPHOLOGY COMMENT NORMAL MORPHOLOGY (NORM); WBC MORPHOLOGY COMMENT NORMAL MORPHOLOGY (NORM)
[2017-05-21 05:48] LABS: BLOOD UREA NITROGEN 18 mg/dL (7-22); SERUM ALBUMIN 2.8 g/dL (3.5-4.8)
[2017-05-21] MEDS: LISINOPRIL 5 MG TABLET PO SCH (08:46)
[2017-05-21] MEDS: CITALOPRAM 20 MG TABLET PO SCH (08:46)
[2017-05-21] MEDS: FINASTERIDE 5 MG TABLET PO SCH (08:46)
[2017-05-21] MEDS ORDERED: NORMAL SALINE 10 ML SYRINGE FLUSH IVP PRN (11:24)
--- NOTE | 2017-05-21 12:28 | PDOC(PROG) ---
Interval History: Patient is doing well has no complaints no nausea vomiting or abdominal pain still feels a little weak he says he would like to go home I told him he will need another day of antibiotics and more PT and OT and according to how he feels tomorrow this could be arranged also social services coordinator are working on helping him foot some extra help in food Objective : Data - Labs CBC and BMP: 05/21/17 03:55 05/21/17 03:55 Objective : Exam - General General Appearance: Cooperative - Head Head Exam: Normal Inspection - Eye Eye Exam: Normal Appearance - Respiratory Respiratory Exam: Clear to Auscultation - Bilaterally, Breathing Non Labored, Normal To Percussion - Cardiovascular Cardiovascular Exam: RRR, No Murmur, No Clicks, No Gallops - GI/Abdominal GI/Abdominal Exam: Normal Bowel Sounds, Non Tender, Non Distended, Soft - Extremities Extremities Exam: No Clubbing Present, No Edema Present, No Cyanosis Present - Neurological Neurological Exam: Alert, Oriented x 3, CN II-XII Intact Assessment and Plan - Patient Problems (1) Cholecystitis Current Visit: Yes Status: Acute Code(s): K81.9 - Cholecystitis, unspecified (2) Hypertension Current Visit: Yes Status: Acute Code(s): I10 - Essential (primary) hypertension (3) Hypothyroidism Current Visit: Yes Status: Acute Code(s): E03.9 - Hypothyroidism, unspecified (4) Multiple falls Current Visit: Yes Status: Acute Code(s): R29.6 - Repeated falls (5) Weakness Current Visit: Yes Status: Acute Code(s): R53.1 - Weakness - Assessment / Plan Additional Assessment/Plan Details: #1 in regards to his cholecystitis we will continue ertapenem for one more day considering his white count is improving. General surgery was consulted and recommended most likely outpatient cholecystectomy. Continue other medications for other medical issues. #2 generalized weakness and multiple falls PT and OT is working with him and we will see what the recommendation is the patient would like to be discharged home if significant recommendation from OT we will make a final recommendation to the patient who will decide ultimately what he wants to do also social services coordinator consulted for extra help with food and other services
[2017-05-21] MEDS: Sodium Chloride 0.9% 1,000 ML PRIMARY IV SCH (12:29)
--- NOTE | 2017-05-21 13:02 | PTI REPORT ---
Thank you for the referral of Howard Persaud. He was seen on 05/20/17 for an inpatient evaluation secondary to weakness. SUBJECTIVE: The patient is a 76-year-old male who states that he was admitted to the hospital secondary to issues with his GI and constipation. The patient reports that he has recently had an increase in falls that started about a month ago. He was having multiple falls before, but now he is having multiple falls within one day and he attributes part of that to his increase in difficulties with constipation over the last month. The patient states that when he falls he has a tendency to fall backward or toward his left side. He states that his left side is weaker than his right but denies any previous stroke or issues with the left side. The patient does have a history of vestibular issues. With both ears he has had surgery for conductive hearing loss in the late 90s. He also does have issues with his vision including macular degeneration, glaucoma, and poor vision in his left eye as compared to the right. The patient states he also does have neuropathy, all of which contribute to the patient's poor balance. He states that he does live here in [place]; he lives by himself in town. He states that he has one step into his house, otherwise his whole house is on one level. The patient states that he primarily uses a walker to get around. He states that he keeps one in his backyard, one inside his home, and one in his car so that he has one with him at all times. He states that he primarily uses a front wheeled walker but at times will use a standard walker. PAST MEDICAL HISTORY: Past medical history can be found in the patient's medical record. OBJECTIVE FINDINGS: General observations: The patient was alert and oriented to setting upon PT arrival. The patient was just finishing toileting activity with [employer] prior to PT arrival. After the patient came out of the restroom, PT did take over care. Ambulation: The therapist helped instruct the patient how to ambulate correctly with his walker over to the sink. The patient did perform standing with hand hold assist x1 on the walker in order to wash his hands and his face. The patient did require contact guard to min assist x1, especially when he brought his hand off of the walker due to his poor balance to go posteriorly. The patient was able to ambulate with walker and contact guard assist x1 for safety over to his chair. Transfers: The patient was able to independently move from a standing to seated position. The patient was able to perform a sit to stand transfer x3 without requiring assistance, just contact guard assist x1 for safety. Balance: In a standing position the patient was instructed in a balance activity consisting of the patient moving within the sagittal and frontal planes. The patient required mod assist of two as he had a tendency to go posteriorly and did require mod assist of two to maintain his upright balance. The patient was able to perform the activity but struggled to position his weight over his feet and has a tendency for his trunk to go posteriorly. After this activity the patient sat back down in a chair. Strength: The patient's lower extremity strength was tested. Left sided hip strength was 3/5, right hip strength was 4/5, left knee and ankle strength was 4 /5, and right knee and ankle strength was 5/5. ASSESSMENT: The patient has fair to poor rehab potential secondary to his past medical history. The patient does have very poor balance. Problem List: Poor balance reaction Patient is a very high fall risk (the patient reports multiple falls per day) Decreased endurance and activity tolerance Generalized weakness Short-Term Goals: To be met by discharge from inpatient: Patient will be able to perform all transfers safely and independently. Patient will be able to ambulate at least 150 feet with a front wheeled walker without any assistance and do so safely. Patient will be able to tolerate 30 minutes of physical exercise in therapy in order to improve his overall endurance. Patient will be able to perform box step ups with front wheeled walker with no more than stand by assist x1 for safety in order to get into and out of his home. Long-Term Goals: To be met following discharge from inpatient: Patient will be a good candidate for physical therapy as an outpatient in order to continue to work on compensation for his balance and general strength and mobility. TREATMENT PLAN: Patient will be seen B.I.D during the week and one time per day over the weekend as an inpatient to address the above goals and objectives. INITIAL TREATMENT: Treatment today consisted of the initial evaluation activities. The patient was instructed on an exercise to work on his trunk strength. MILAGROS
--- NOTE | 2017-05-21 14:02 | PDOC(PROG) ---
General Note Progress Note: Patient was not in his room when I came to see him. He was down in physical therapy. The staff reports he is in no abdominal pain. He is tolerating a fat- controlled diet. He is not needing any pain medications. His white count has returned to normal. His blood cultures are negative at 24 hours. His liver function tests all remained normal. I have stopped the Invanz as there is no indication to continue antibiotics. As per my previous note I would recommend outpatient follow-up in 2 weeks. Would like him to see his primary care provider first. He does have an abnormal gallbladder and probably should consider an elective cholecystectomy. No indication for cholecystectomy at this time. Patient Problems - Patient Problem List (1) Abnormal gallbladder ultrasound Current Visit: Yes Status: Chronic Priority: Medium Comment: No indication for surgical intervention at this time. See primary care provider post discharge and then see me for consideration of elective cholecystectomy. Please call if I can be of further help this hospitalization otherwise I will sign off. Code(s): R93.2 - Abnormal findings on diagnostic imaging of liver and biliary tract Category: Medical
[2017-05-21] MEDS: TRAVOPROST 0.004% EACH EYE SCH (15:24)
--- NOTE | 2017-05-21 15:53 | OT AM DAY ---
Diagnosis : Falls/Weakness AM - Occupational Therapy S: The patient reports that the wheeled walker is working a lot better. He still felt he was leaning backward with some of the activities today. O: The patient performed a sit to stand transfer with contact guard assist. The patient walked to the sink and completed hygiene activities at the sink x6 minutes with min assist to keep his balance. He had to hold onto the sink so that he would not fall backward. When both hands were off of the sink, he tended to lean backward. The therapist tried to give less proprioceptive cueing so that the patient would know where he was in an upright position. The patient performed toilet transfer with min assist for balance and cues secondary to decreased visual abilities to see exactly where he was within the bathroom. When we walked throughout the room the patient tended to lean to the right. When walking down to therapy he tended to go to the right and ran into a few castro. Downstairs in therapy we worked on upper extremity strengthening including upper body ergometer x10 minutes followed by upper extremity strengthening with a two pound weight for flexion, biceps, and pronation/ supination. A: The patient reported that he fatigued pretty easily after exercises today. He reports that he does fatigue easier than he did a couple of months ago. The patient still has a lot of balance difficulties. P: Continue seeing patient BID during the week and one time per day over the weekend for upper extremity strengthening, ADLs, and overall functional mobility. MTDD
--- NOTE | 2017-05-21 16:33 | OT.PROG ---
Progress Note Progress Note: S: pt was in good spirits today and willing to participate. He did stated that his balance is off. O: pt was seen in his room after completing toilet transfer with nursing. He then completed hygiene at sink Ind. He then transferred entire way to therapy with no breaks. He completed a total of 6 min on nu step to increase activity tolerance as he needed x1 break. He then completed brian's with 1.5 k in all ranges x15 in bicep flex, e/IRot, shoulder add, rows. PT took over tx at this time. A: pt may continue to benefit from therapy to increase his ability to balance self on uneven surfaces. He participate well today. P: continue per POC.
[2017-05-21] MEDS: BETAXOLOL EACH EYE SCH (21:42)
[2017-05-22] MEDS: LEVOTHYROXINE 75 MCG TABLET PO SCH (05:15)
--- NOTE | 2017-05-22 08:55 | PT AM DAY ---
Diagnosis : Falls/Weakness AM - Physical Therapy S: The patient reports no new changes. O: The patient ambulated 175 feet to the therapy gym where he performed balance exercises in the form of balance grid x3, seated trunk balance with purple and pink slosh pipes x7 forward and backward and x10 side to side, and sit to stands x10. The patient then worked with occupational therapy. Following that the patient ambulated 175 feet back to his room where he was left in his chair with chair alarm on and call light within reach. A: The patient becomes very unstable and tries to lean backward when he is performing exercises. He is very impulsive during ambulation and would continue to benefit from skilled therapy at this time. P: Continue seeing patient BID during the week and one time per day over the weekend for transfers, ambulation, and range of motion/strengthening exercises. MILAGROS
--- NOTE | 2017-05-22 09:02 | PT PM DAY ---
Diagnosis : Falls/Weakness PM - Physical Therapy S: The patient reports no new changes. O: The patient ambulated 175 feet to the therapy gym where he performed seated exercises in the form of long arc quads, heel/toe raises, marches, ball squeezes, and sit to stands, all with two pounds x10 repetitions. The patient performed the NuStep x7 minutes followed by sit ups and bridges x10. The patient then ambulated 175 feet back to his room where he was left in his chair with chair alarm on and call light within reach. A: The patient continues to struggle with balance deficits and continues to require mod to max assist with transfers and balance activities. The patient would continue to benefit from skilled therapy at this time. P: Continue seeing patient BID during the week and one time per day over the weekend for transfers, ambulation, and range of motion/strengthening exercises. MTDD
[2017-05-22] MEDS: LISINOPRIL 5 MG TABLET PO SCH (09:46)
[2017-05-22] MEDS: FINASTERIDE 5 MG TABLET PO SCH (09:46)
[2017-05-22] MEDS: CITALOPRAM 20 MG TABLET PO SCH (09:46)
[2017-05-22] MEDS: DORZOLAMIDE 2% EACH EYE SCH (09:47)
--- NOTE | 2017-05-22 12:21 | PT.PROG ---
Progress Note Progress Note: S. Patient agreed to go to therapy this morning. O. Patient was wheeled to the therapy gym where he used the nu-step x 5 minutes , then performed exercises in the form of; long arc quads, heel toe raises, marches, ball squeezes, clamshells, all x 10 with 1# weights and red theraband. Patient was left with OT for further therapy. A. Patient tolerated therapy well this morning, he appears confused, however was able to perform all tasks. Patient continues to be very unstable and requires frequent verbal and tactile cues for his balance. Patient would continue to benefit from skilled therapy at this time. P. Continue POC.
--- NOTE | 2017-05-22 12:27 | OT.PROG ---
Progress Note Progress Note: S: pt stated when entering his room that he just woke up. He stated he had not eaten breakfast yet. He attempted to order breakfast but stated that he can see menu fine, he was just having difficulty processing right now. O: pt was seen in his room in the a.m. He was assisted with ordering of breakfast and needing cues on menu and to stay focused on ordering his meal. therapy later returned to his room and completed transfer downstairs for therapy with 0 breaks. After completing time on Nu step he transferred to mat table. He completed balance activity on/off air aid and with or without use of walker. He then completed UE exercises with cane and 2# x15 and RTB in all ranges x10. He returned to his room and was left upright in chair with call light within reach and alarm on. A: pt still has difficulty with balance and does not appear to know where midline is. He feels as though he is always about to fall forward therefore compensates by leaning backwards, which increases his falls. He appeared to be confused today today during ordering of breakfast. P: continue per POC.
[2017-05-22] MEDS ORDERED: Ertapenem Inj 1 GM in Sodium Chloride 0.9% 100 ML IV SCH (13:30)
--- NOTE | 2017-05-22 13:39 | PDOC(PROG) ---
Interval History: Patient is doing great no complaints still working with PT and OT for his imbalance Objective : Data - Labs CBC and BMP: 05/21/17 03:55 05/21/17 03:55 Objective : Exam - Head Head Exam: Normal Inspection - Eye Eye Exam: Normal Appearance - Respiratory Respiratory Exam: Clear to Auscultation - Bilaterally, Breathing Non Labored, Normal To Percussion - Cardiovascular Cardiovascular Exam: RRR, No Murmur, No Clicks, No Gallops, No Rubs, PMI Non- Displaced - GI/Abdominal GI/Abdominal Exam: Normal Bowel Sounds, Non Tender, Non Distended, Soft, No Masses, No Hepatomegaly, No Splenomegaly, No Organomegaly - External Exam: Deferred - Extremities Extremities Exam: No Clubbing Present, No Edema Present, No Cyanosis Present Assessment and Plan - Patient Problems (1) Cholecystitis Current Visit: Yes Status: Acute Comment: Resolved normal white count Code(s): K81.9 - Cholecystitis, unspecified (2) Hypertension Current Visit: Yes Status: Acute Comment: Stable at present time Code(s): I10 - Essential (primary) hypertension (3) Hypothyroidism Current Visit: Yes Status: Acute Comment: Stable Code(s): E03.9 - Hypothyroidism, unspecified (4) Multiple falls Current Visit: Yes Status: Acute Comment: Tinea PTOT consult was put in for swing bed Code(s): R29.6 - Repeated falls (5) Weakness Current Visit: Yes Status: Acute Comment: PTOT swing bed consult Code(s): R53.1 - Weakness
[2017-05-22] MEDS: ACETAMINOPHEN 325 MG TABLET PO PRN (16:04)
--- NOTE | 2017-05-22 17:37 | OT.PROG ---
Progress Note Progress Note: S: pt stated he was waiting on one of his care providers to drop of some mail. After explaining MOCA he stated he was ok with doing it. O: pt was seen in his room and participated in MOCA. He completed the visual spatial /5 Naming 3/3 attention digits 1/2 attention letter "A" 1/ attention subtraction 3/3 Language 0/ abstraction 2/2 delayed recall 08/08 orientation 01/[address] him in mild cognitive impairment. Pt then transferred to restroom completing toilet ind except for needing assistance completing sit to stand. He then completed hygiene at sink for up to 5 min Ind. He transferred dowstairs with walker and 0 breaks. He completed 5 min on arm bike to increase activity tolerance. Pt was turned over to PT for their portion of tx. A: pt's imbalance still makes him a severe fall risk at this time. Continue to maintain CGA at all times for safety. P: Continue per POC.
[2017-05-22] MEDS: BETAXOLOL EACH EYE SCH (20:02)
[2017-05-23] MEDS: LEVOTHYROXINE 75 MCG TABLET PO SCH (06:07)
[2017-05-23] MEDS: DORZOLAMIDE 2% EACH EYE SCH (07:38)
[2017-05-23] MEDS: TRAVOPROST 0.004% EACH EYE SCH ×2 (07:38→10:03)
[2017-05-23] MEDS: LISINOPRIL 5 MG TABLET PO SCH (08:25)
[2017-05-23] MEDS: FINASTERIDE 5 MG TABLET PO SCH (08:25)
[2017-05-23] MEDS: CITALOPRAM 20 MG TABLET PO SCH (08:25)
--- NOTE | 2017-05-23 11:21 | PDOC(PROG) ---
Interval History: No complaints continues to do PT and OT Objective : Data - Labs CBC and BMP: 05/21/17 03:55 05/21/17 03:55 Objective : Exam - Respiratory Respiratory Exam: Clear to Auscultation - Bilaterally, Breathing Non Labored, Normal To Percussion - Cardiovascular Cardiovascular Exam: RRR, No Murmur, No Clicks - GI/Abdominal GI/Abdominal Exam: Normal Bowel Sounds, Non Tender, Non Distended - Extremities Extremities Exam: No Clubbing Present Assessment and Plan - Patient Problems (1) Cholecystitis Current Visit: Yes Status: Acute Comment: This is resolved antibiotics are stopped check another CBC will need follow-up as an outpatient with general surgery Code(s): K81.9 - Cholecystitis, unspecified (2) Hypertension Current Visit: Yes Status: Acute Comment: Stable at present time Code(s): I10 - Essential (primary) hypertension (3) Hypothyroidism Current Visit: Yes Status: Acute Comment: Stable Code(s): E03.9 - Hypothyroidism, unspecified (4) Multiple falls Current Visit: Yes Status: Acute Comment: Continue PT and OT for recommendations on long-term plan Code(s): R29.6 - Repeated falls (5) Weakness Current Visit: Yes Status: Acute Code(s): R53.1 - Weakness
--- NOTE | 2017-05-23 12:24 | OT.PROG ---
Progress Note Progress Note: S: pt states he had hard time falling asleep last night but he was ready to get up and go to bathroom, and brush his teeth. O: pt was seen in his room in the a.m. He complete functional transfer to restroom with CGA for safety as he is a high fall risk. He then completed toileting Ind. He transferred to sink where he completed hygiene Ind. He then complete donning of shoes Ind and completed transfer downstairs with CGA at all times for safety. He then completed HOr abd/add while stading up to increase core strength and balance. He completed 6 min on Nu step to increase activity tolerance and 3-way bungees x15 maintaining CGA at all times. Pt trasnferred back upstairs and was left upright in chair with alarm on. A: pt may continue to benefit from to work on balance during postural transitions for safety. He continues to stand back on his heels when upright. P: continue per POC. He may benefit from SB to work on strength and safety.
--- NOTE | 2017-05-23 15:34 | PT AM DAY ---
Diagnosis : Falls/Weakness AM - Physical Therapy S: The patient reports he feels like when he is standing that he is upright ; however, he is beginning to understand that if he does not use an assistive device his risk of falls is drastically increased. O: Today's PT began after completion of OT. Treatment today consisted of standing balance without and without the AireX bilaterally with external force provided by the therapist as well as sit to stand transfers, weight-shifting, balance grid, and hurdling activities. The patient then ambulated all the way back up to his room with front wheeled walker, gait belt, contact guard assist, and verbal cues for propre hand placement. A: The patient required constant verbal cues for safety awareness and continues to be a high fall risk. P: Continue seeing patient BID during the week and one time per day over the weekend for transfers, ambulation, and range of motion/strengthening exercises. MILAGROS
--- NOTE | 2017-05-23 16:53 | OT.PROG ---
Progress Note Progress Note: S: pt stated that he was glad he got a little extra rest today after lunch. He reported that he had already used the restroom and did not have to at this time. O: pt completed functional transfer approx 150 ft to therapy with no breaks. He completed 6 min on UE bike to increase activity tolerance. He then transferred to mat table to complete PT. Once finished with PT he completed cane with 2# in bench press and B shoulder flex each x15. He then sat up and completed rows, shoulder ext and hor abd/add with cues to keep vetical while sitting up rather than leaning backwards. A: pt still struggles with balance and puts all of his weight on his heels when standing therefore almost falling backwards. Continue to work on balance and initiating core. P: continue per POC. High fall risk.
[2017-05-23] MEDS ORDERED: TRAVOPROST 0.004% EACH EYE SCH (21:00)
[2017-05-23] MEDS: BETAXOLOL EACH EYE SCH (21:12)
[2017-05-23] MEDS: ACETAMINOPHEN 325 MG TABLET PO PRN (21:14)
[2017-05-24] MEDS: LEVOTHYROXINE 75 MCG TABLET PO SCH (06:03)
[2017-05-24 06:28] LABS: BASOPHILS # (AUTO) 0.03 10*3/UL; BASOPHILS % (AUTO) 0.6 % (0-1); EOSINOPHILS # (AUTO) 0.24 10*3/UL; EOSINOPHILS % (AUTO) 4.8 % (0-8); Hematocrit [HCT] 35.9 % (42.0-52.0); Hemoglobin [HGB] 11.7 g/dL (14.0-18.0); LYMPHOCYTES # (AUTO) 0.94 10*3/uL; MEAN CORPUSCULAR HEMOGLOBIN 29.3 PG (27-31); MEAN CORPUSCULAR HGB CONC 32.6 g/dL (33-37); MEAN CORPUSCULAR VOLUME 89.8 FL (80-90); MEAN PLATELET VOLUME 9.6 FL (7.4-12.2); MONOCYTES # (AUTO) 0.54 10*3/UL (0.3-0.8); MONOCYTES % (AUTO) 10.9 % (5-15); NEUTROPHILS # (AUTO) 3.18 10*3/UL; NEUTROPHILS % (AUTO) 64.3 % (50-80)
[2017-05-24 06:30] LABS: PLATELET MORPHOLOGY COMMENT NORMAL MORPHOLOGY (NORM); RBC MORPHOLOGY COMMENT NORMAL MORPHOLOGY (NORM); WBC MORPHOLOGY COMMENT NORMAL MORPHOLOGY (NORM)
[2017-05-24 06:32] LABS: BLOOD UREA NITROGEN 11 mg/dL (7-22); BUN/CREATININE RATIO 18.33 (6-20); SERUM ALBUMIN 3.1 g/dL (3.5-4.8)
[2017-05-24] MEDS: FINASTERIDE 5 MG TABLET PO SCH (08:32)
[2017-05-24] MEDS: CITALOPRAM 20 MG TABLET PO SCH (08:32)
[2017-05-24] MEDS: DORZOLAMIDE 2% EACH EYE SCH (08:32)
[2017-05-24] MEDS: LISINOPRIL 5 MG TABLET PO SCH (08:32)
[2017-05-24 08:44] VITALS: BP 163/79; RESP 20; TEMP 98.2; O2SAT 94
--- NOTE | 2017-05-24 11:09 | OT.PROG ---
Progress Note Progress Note: S: pt stated that he needed a little extra time to finish his breakfast. He stated he had difficulty falling asleep last night. O: pt was seen in his room just finishing breakfast. He completed functional transfer to bathroom. Once he arrived in bathroom he needed Min A to prevent fall in bathroom. He completed toileting Ind and transferred out and completed hygiene at sink Ind. He then transferred downstairs for therapy with 0 breaks. He completed 5 in on Ue bike to increase his activity tolerance. He then transferred to mat table completing x10 sit to stands. He completed postural transition from EOB to supine Ind and completed LAQ, SLR, SAQ, hip ADd/add with 2# x15 ea. He also completed x15 half sit ups and bridges. He completed 3-way bungees x15 to initiate core and balance, as well as exercises with GTB in rows , shoulder ext, bicep flex and hor abd/add x10. He completed x2 min on air ex to challenge his balance. He completed functional transfer back to his room and was left with call light within reach and chair alarm on. A: pt continues to be a high fall risk and he leans backwards as he feels that is his midline. when he does adjust and lean to more forward posture he used neck and trunk flext to do so. He may continue to benefit from therapy to work on his overall balance for safety. P: continue per POC.
--- NOTE | 2017-05-24 11:26 | DCSUMMARY ---
Hospitalization Summary Hospital Course: Final Discharge Diagnosis: Current Visit Problems Problem Status Onset Code Multiple falls Acute R29.6 Cholecystitis Acute K81.9 Hypertension Acute I10 Hypothyroidism Acute E03.9 Weakness Acute R53.1 Abnormal gallbladder ultrasound Chronic R93.2 Diagnostic Data, Laboratory Data, and Procedures of Signifigance: Laboratory Results 05/19/17 05/19/17 05/19/17 Range/Units 17:05 17:05 17:05 WBC 16.68 H (4.8-10.8) 10^3/uL RBC 4.55 L (4.70-6.10) 10^6/uL Hgb 13.3 L (14.0-18.0) g/dL Hct 40.5 L (42.0-52.0) % MCV 89.0 (80-90) FL MCH 29.2 (27-31) PG MCHC 32.8 L (33-37) g/dL RDW Std Deviation 47.3 (39-50) fL RDW Coeff of Alissa 14.9 H (11.5-14.5) % Plt Count 253 (140-350) 10*3/uL MPV 10.8 (7.4-12.2) FL Immature Gran % (Auto) 0.4 (0-5) % Neut % (Auto) 81.4 H (50-80) % Lymph % (Auto) 6.7 L (10-50) % Lawrence % (Auto) 11.4 (5-15) % Eos % (Auto) 0 (0-8) % Baso % (Auto) 0.1 (0-1) % Immature Gran # (Auto) 0.07 10*3/UL Neut # (Auto) 13.58 10*3/UL Lymph # (Auto) 1.11 10*3/uL Lawrence # (Auto) 1.90 H (0.3-0.8) 10*3/UL Eos # (Auto) 0 10*3/UL Baso # (Auto) 0.02 10*3/UL WBC Morphology Comment Normal morphology (NORM) Plt Morphology Comment Normal morphology (NORM) RBC Morph Comment Normal morphology (NORM) D-Dimer 1.57 H (0.00-0.59) mg/L Sodium (135-145) meq/L Potassium (3.8-5.2) meq/L Chloride (98-112) meq/L Carbon Dioxide (23-33) meq/L Anion Gap (5-20) BUN (7-22) mg/dL Creatinine (0.70-1.50) mg/dL Estimated GFR BUN/Creatinine Ratio (6-20) Glucose (78-110) mg/dL Calculated Osmolality (267-292) mOsm/kg Lactic Acid (0.70-2.10) MMOL/L Calcium (8.7-10.7) mg/dL Magnesium (1.6-2.4) mg/dL Total Bilirubin (0.3-1.2) mg/dL AST (21-57) IU/L ALT (21-72) IU/L Alkaline Phosphatase (38-126) IU/L Total Creatine Kinase (55-170) IU/L CK-MB (CK-2) 3.17 (0.00-5.00) NG/ML Troponin I < 0.012 (< 0.040) ng/mL C-Reactive Protein (0.0-0.9) mg/dL Total Protein (6.1-8.0) g/dL Albumin (3.5-4.8) g/dL Globulin (2.50-4.10) g/dL Albumin/Globulin Ratio (1.3-2.0) mg/g TSH (0.2700-4.2000) uIU/mL Ur Collection Type Urine Color (Y) Urine Clarity (CLEAR) Urine pH (5.0-8.5) Ur Specific Beaumont (1.005-1.030) Urine Protein (NEG) mg/dl Urine Glucose (UA) (NEG) mg/dL Urine Ketones (NEG) Urine Occult Blood (NEG) Urine Nitrate (NEG) Urine Bilirubin (NEG) Urine Urobilinogen (0.2) EU/dL Ur Leukocyte Esterase (NEG) Ur Culture Indicated? 05/19/17 05/19/17 05/19/17 Range/Units 17:05 18:00 21:18 WBC (4.8-10.8) 10^3/uL RBC (4.70-6.10) 10^6/uL Hgb (14.0-18.0) g/dL Hct (42.0-52.0) % MCV (80-90) FL MCH (27-31) PG MCHC (33-37) g/dL RDW Std Deviation (39-50) fL RDW Coeff of Alissa (11.5-14.5) % Plt Count (140-350) 10*3/uL MPV (7.4-12.2) FL Immature Gran % (Auto) (0-5) % Neut % (Auto) (50-80) % Lymph % (Auto) (10-50) % Lawrence % (Auto) (5-15) % Eos % (Auto) (0-8) % Baso % (Auto) (0-1) % Immature Gran # (Auto) 10*3/UL Neut # (Auto) 10*3/UL Lymph # (Auto) 10*3/uL Lawrence # (Auto) (0.3-0.8) 10*3/UL Eos # (Auto) 10*3/UL Baso # (Auto) 10*3/UL WBC Morphology Comment (NORM) Plt Morphology Comment (NORM) RBC Morph Comment (NORM) D-Dimer (0.00-0.59) mg/L Sodium 128 L (135-145) meq/L Potassium 4.2 (3.8-5.2) meq/L Chloride 90 L (98-112) meq/L Carbon Dioxide 26 (23-33) meq/L Anion Gap 12 (5-20) BUN 26 H (7-22) mg/dL Creatinine 1.0 (0.70-1.50) mg/dL Estimated GFR BUN/Creatinine Ratio 26.00 H (6-20) Glucose 107 (78-110) mg/dL Calculated Osmolality 270.0 (267-292) mOsm/kg Lactic Acid 1.5 (0.70-2.10) MMOL/L Calcium 8.3 L (8.7-10.7) mg/dL Magnesium 3.2 H (1.6-2.4) mg/dL Total Bilirubin 1.4 H (0.3-1.2) mg/dL AST 42 (21-57) IU/L ALT 48 (21-72) IU/L Alkaline Phosphatase 150 H (38-126) IU/L Total Creatine Kinase 281 H (55-170) IU/L CK-MB (CK-2) (0.00-5.00) NG/ML Troponin I (< 0.040) ng/mL C-Reactive Protein 21.6 H (0.0-0.9) mg/dL Total Protein 6.7 (6.1-8.0) g/dL Albumin 3.5 (3.5-4.8) g/dL Globulin 3.2 (2.50-4.10) g/dL Albumin/Globulin Ratio 1.00 L (1.3-2.0) mg/g TSH 4.10 (0.2700-4.2000) uIU/mL Ur Collection Type Voided specimen Urine Color Yellow (Y) Urine Clarity Clear (CLEAR) Urine pH 7.0 (5.0-8.5) Ur Specific [place] 1.010 (1.005-1.030) Urine Protein Trace (NEG) mg/dl Urine Glucose (UA) Negative (NEG) mg/dL Urine Ketones Negative (NEG) Urine Occult Blood Negative (NEG) Urine Nitrate Negative (NEG) Urine Bilirubin Negative (NEG) Urine Urobilinogen 0.2 (0.2) EU/dL Ur Leukocyte Esterase Negative (NEG) Ur Culture Indicated? Culture not set 05/20/17 05/20/17 05/21/17 Range/Units 04:12 04:12 03:55 WBC 11.63 H 9.06 (4.8-10.8) 10^3/uL RBC 4.36 L 3.90 L (4.70-6.10) 10^6/uL Hgb 12.7 L 11.2 L (14.0-18.0) g/dL Hct 38.7 L 35.3 L (42.0-52.0) % MCV 88.8 90.5 H (80-90) FL MCH 29.1 28.7 (27-31) PG MCHC 32.8 L 31.7 L (33-37) g/dL RDW Std Deviation 46.7 47.2 (39-50) fL RDW Coeff of Alissa 14.7 H 14.5 (11.5-14.5) % Plt Count 191 197 (140-350) 10*3/uL MPV 10.5 11.3 (7.4-12.2) FL Immature Gran % (Auto) 0.3 0.3 (0-5) % Neut % (Auto) 78.0 78.8 (50-80) % Lymph % (Auto) 9.2 L 8.7 L (10-50) % Lawrence % (Auto) 12.4 11.9 (5-15) % Eos % (Auto) 0 0.2 (0-8) % Baso % (Auto) 0.1 0.1 (0-1) % Immature Gran # (Auto) 0.03 0.03 10*3/UL Neut # (Auto) 9.08 7.13 10*3/UL Lymph # (Auto) 1.07 0.79 10*3/uL Lawrence # (Auto) 1.44 H 1.08 H (0.3-0.8) 10*3/UL Eos # (Auto) 0 0.02 10*3/UL Baso # (Auto) 0.01 0.01 10*3/UL WBC Morphology Comment Normal morphology Normal morphology (NORM) Plt Morphology Comment Normal morphology Normal morphology (NORM) RBC Morph Comment Normal morphology Normal morphology (NORM) D-Dimer (0.00-0.59) mg/L Sodium 132 L (135-145) meq/L Potassium 3.9 (3.8-5.2) meq/L Chloride 97 L (98-112) meq/L Carbon Dioxide 27 (23-33) meq/L Anion Gap 8 (5-20) BUN 21 (7-22) mg/dL Creatinine 0.7 (0.70-1.50) mg/dL Estimated GFR BUN/Creatinine Ratio 30.00 H (6-20) Glucose 86 (78-110) mg/dL Calculated Osmolality 275.0 (267-292) mOsm/kg Lactic Acid (0.70-2.10) MMOL/L Calcium 8.2 L (8.7-10.7) mg/dL Magnesium (1.6-2.4) mg/dL Total Bilirubin 1.0 (0.3-1.2) mg/dL AST 36 (21-57) IU/L ALT 49 (21-72) IU/L Alkaline Phosphatase 131 H (38-126) IU/L Total Creatine Kinase (55-170) IU/L CK-MB (CK-2) (0.00-5.00) NG/ML Troponin I (< 0.040) ng/mL C-Reactive Protein (0.0-0.9) mg/dL Total Protein 6.2 (6.1-8.0) g/dL Albumin 3.1 L (3.5-4.8) g/dL Globulin 3.1 (2.50-4.10) g/dL Albumin/Globulin Ratio 1.00 L (1.3-2.0) mg/g TSH (0.2700-4.2000) uIU/mL Ur Collection Type Urine Color (Y) Urine Clarity (CLEAR) Urine pH (5.0-8.5) Ur Specific [place] (1.005-1.030) Urine Protein (NEG) mg/dl Urine Glucose (UA) (NEG) mg/dL Urine Ketones (NEG) Urine Occult Blood (NEG) Urine Nitrate (NEG) Urine Bilirubin (NEG) Urine Urobilinogen (0.2) EU/dL Ur Leukocyte Esterase (NEG) Ur Culture Indicated? 05/21/17 05/24/17 05/24/17 Range/Units 03:55 06:05 06:05 WBC 4.95 (4.8-10.8) 10^3/uL RBC 4.00 L (4.70-6.10) 10^6/uL Hgb 11.7 L (14.0-18.0) g/dL Hct 35.9 L (42.0-52.0) % MCV 89.8 (80-90) FL MCH 29.3 (27-31) PG MCHC 32.6 L (33-37) g/dL RDW Std Deviation 46.0 (39-50) fL RDW Coeff of Alissa 14.2 (11.5-14.5) % Plt Count 223 (140-350) 10*3/uL MPV 9.6 (7.4-12.2) FL Immature Gran % (Auto) 0.4 (0-5) % Neut % (Auto) 64.3 (50-80) % Lymph % (Auto) 19.0 (10-50) % Lawrence % (Auto) 10.9 (5-15) % Eos % (Auto) 4.8 (0-8) % Baso % (Auto) 0.6 (0-1) % Immature Gran # (Auto) 0.02 10*3/UL Neut # (Auto) 3.18 10*3/UL Lymph # (Auto) 0.94 10*3/uL Lawrence # (Auto) 0.54 (0.3-0.8) 10*3/UL Eos # (Auto) 0.24 10*3/UL Baso # (Auto) 0.03 10*3/UL WBC Morphology Comment Normal morphology (NORM) Plt Morphology Comment Normal morphology (NORM) RBC Morph Comment Normal morphology (NORM) D-Dimer (0.00-0.59) mg/L Sodium 135 138 (135-145) meq/L Potassium 3.8 4.1 (3.8-5.2) meq/L Chloride 101 105 (98-112) meq/L Carbon Dioxide 23 25 (23-33) meq/L Anion Gap 11 8 (5-20) BUN 18 11 (7-22) mg/dL Creatinine 0.6 L 0.6 L (0.70-1.50) mg/dL Estimated GFR Photovoltaic Testing Technician Photovoltaic Testing Technician BUN/Creatinine Ratio 30.00 H 18.33 (6-20) Glucose 91 82 (78-110) mg/dL Calculated Osmolality 281.0 283.0 (267-292) mOsm/kg Lactic Acid (0.70-2.10) MMOL/L Calcium 7.5 L 8.6 L (8.7-10.7) mg/dL Magnesium (1.6-2.4) mg/dL Total Bilirubin 0.6 0.7 (0.3-1.2) mg/dL AST 42 34 (21-57) IU/L ALT 43 46 (21-72) IU/L Alkaline Phosphatase 131 H 159 H (38-126) IU/L Total Creatine Kinase (55-170) IU/L CK-MB (CK-2) (0.00-5.00) NG/ML Troponin I (< 0.040) ng/mL C-Reactive Protein 14.9 H (0.0-0.9) mg/dL Total Protein 5.7 L 6.2 (6.1-8.0) g/dL Albumin 2.8 L 3.1 L (3.5-4.8) g/dL Globulin 2.9 3.1 (2.50-4.10) g/dL Albumin/Globulin Ratio 0.90 L 1.00 L (1.3-2.0) mg/g TSH (0.2700-4.2000) uIU/mL Ur Collection Type Urine Color (Y) Urine Clarity (CLEAR) Urine pH (5.0-8.5) Ur Specific [place] (1.005-1.030) Urine Protein (NEG) mg/dl Urine Glucose (UA) (NEG) mg/dL Urine Ketones (NEG) Urine Occult Blood (NEG) Urine Nitrate (NEG) Urine Bilirubin (NEG) Urine Urobilinogen (0.2) EU/dL Ur Leukocyte Esterase (NEG) Ur Culture Indicated? 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 Patient was started on IV antibiotics with resolution of his white count and abdominal pain is been doing great but according to physical therapy and PT patient needs more help and improving his balance and strength and he also agrees with this and will be transferred to swing bed after I discussed it with the social service On the date of discharge, the patient was examined: Gen.: No acute distress, alert, nontoxic Heart: Regular rate and rhythm, no murmurs, clicks, gallops, or rubs Lungs: Clear to auscultation bilaterally, breathing is nonlabored Abdomen/GI: Normal tones on auscultation, soft, nontender, nondistended Musculoskeletal/extremities: No clubbing, cyanosis, or edema Vitals reviewed and are listed below Vital Signs (24 hrs) Temp Pulse Pulse Pulse Resp BP BP 05/24/17 08:43 98.2 F 73 20 163/79 05/24/17 05:20 98.1 F 70 16 155/75 05/24/17 00:29 97.9 F 76 20 150/74 05/23/17 20:10 98.8 F 74 20 161/75 05/23/17 16:59 98.6 F 75 18 166/75 05/23/17 13:00 98.0 F 69 20 147/78 Pulse Ox 05/24/17 08:43 94 05/24/17 05:20 92 05/24/17 00:29 92 05/23/17 20:10 05/23/17 16:59 96 05/23/17 13:00 95 Assessment and Plan: 1. As per discharge assessments above 2. Disposition: Swing bed 3. Condition on discharge, stable and improved. 4. Diet: regular diet 5. Activities: resume normal activities 6. Follow-Up: With general surgery for gallbladder disease 1. PCP 2. 7. Medications at the Time of Discharge: Home Medications Medication Instructions Recorded Confirmed Type Dorzolamide HCl/Timolol Maleat 1 drp OP BID 1 Days drp 10/25/11 05/20/17 History [Cosopt Eye Drops] Betaxolol HCl [Betoptic S] 2 drp OP BID 30 Days drp 09/22/12 05/20/17 History Guaifenesin [Mucinex] 1,200 mg PO BID #1 bottle 11/12/12 05/20/17 History Finasteride 5 mg PO DAILY tab 07/08/14 05/20/17 History Ranibizumab [Lucentis] 0.5 mg INVTRL MONTHLY ml 07/08/14 05/20/17 History Denosumab [Prolia] 60 mg SUBCUT ONCE #1 ml 08/19/16 05/20/17 History Levothyroxine Sodium 75 mcg PO DAILY #90 tab 08/19/16 05/20/17 History Lisinopril 1 tab PO DAILY #90 tab 08/19/16 05/20/17 Rx Travoprost [Travatan Z] 1 drp OP DAILY drp 08/19/16 05/20/17 History Tobramycin Sulf/Dexamethasone 1 drp OP q48 drp 02/17/17 05/20/17 History [Tobradex Eye Drops] Citalopram Hydrobromide 20 mg PO DAILY 05/19/17 05/20/17 History [Citalopram Hbr] 3 Generic Name Dose Route Start Last Admin Trade Name Freq PRN Reason Stop Dose Admin Acetaminophen 650 mg 05/21/17 04:07 05/23/17 21:14 Tylenol PO 650 mg Q6H PRN Administration Pain 1-3 / Temp >100.5 Artificial Tears 1 drp 05/21/17 01:44 05/21/17 10:06 Artificial Tears Ophth Soln EACH EYE 1 drp QID PRN Administration Dry Eyes Citalopram Hydrobromide 20 mg 05/20/17 09:00 05/24/17 08:32 Celexa PO 20 mg DAILY KERVIN Administration Finasteride 5 mg 05/20/17 09:00 05/24/17 08:32 Proscar PO 5 mg DAILY KERVIN Administration Levothyroxine Sodium 75 mcg 05/20/17 05:30 05/24/17 06:03 Synthroid PO 75 mcg DAILY@0530 KERVIN Administration Lisinopril 5 mg 05/20/17 09:00 05/24/17 08:32 Prinivil PO 5 mg DAILY KERVIN Administration Non-Formulary Medication 1 drp 05/20/17 21:00 05/23/17 21:12 Betaxolol Hcl [Betoptic S] EACH EYE 1 drp BEDTIME KERVIN Administration Dorzolamide Hcl 2% 1 05/22/17 07:00 05/24/17 08:32 Opthalmic Solution EACH EYE 1 DAILY@0700 KERVIN Administration Travantan Z 0.004% 2 1 05/23/17 21:00 05/23/17 21:13 .5ml Opthalmic EACH EYE 1 Solution [email or web address] KERVIN Administration Polyethylene Glycol 17 gm 05/20/17 12:16 05/22/17 09:47 Miralax Packet PO 17 gm DAILY PRN Administration CONSTIPATION 8. Time, care, counseling and coordination of care for this discharge is greater than 30 minutes. Exam - Vitals Vital Signs: Vital Signs Temperature 98.2 F Temperature Source Oral Pulse Rate [Apical] 69 Pulse Rate [Pulse Oximeter 70 Left] Pulse Rate [Pulse Oximeter 73 Right] Pulse Rate 89 Respiratory Rate 20 Blood Pressure [Right Arm] 155/75 Blood Pressure [Left Arm] 163/79 Blood Pressure 153/93 Pulse Ox 94 Oxygen Flow Rate 1 Oxygen Delivery Method Room Air Height 5 ft 7 in Weight 147 lb 3.2 oz Patient Problems - Patient Problem List (1) Cholecystitis Current Visit: Yes Status: Acute Code(s): K81.9 - Cholecystitis, unspecified Category: Medical (2) Hypertension Current Visit: Yes Status: Acute Code(s): I10 - Essential (primary) hypertension Category: Medical (3) Hypothyroidism Current Visit: Yes Status: Acute Code(s): E03.9 - Hypothyroidism, unspecified Category: Medical (4) Multiple falls Current Visit: Yes Status: Acute Code(s): R29.6 - Repeated falls Category : Medical (5) Weakness Current Visit: Yes Status: Acute Code(s): R53.1 - Weakness Category: Medical
[2017-05-24] MEDS ORDERED: HEPARIN 5000 UNIT/1 ML SUBCUT SCH (11:30)
[2017-05-24] MEDS ORDERED: Non-Formulary Drug (Denosumab [Prolia] 60 MG) SUBCUT SCH (11:30)
[2017-05-24] MEDS ORDERED: GUAIFENESIN 1200 MG PO SCH (21:00)
--- NOTE | 2017-05-26 08:49 | PT PM DAY ---
Diagnosis : Falls/Weakness PM - Physical Therapy S: The patient reports he is doing well and glad to have a rest after treatment this morning. O: Following completion of occupational therapy, the patient performed therapeutic exercises and functional activities including straight leg raises, short arc quads, long arc quads, hip abduction/adduction, bridges, sit ups, and supine clamshells. He then ambulated all the way back up to his room with use of front wheeled walker, gait belt, and contact guard assist. A: The patient requires verbal cues for safety awareness. P: Continue seeing patient BID during the week and one time per day over the weekend for transfers, ambulation, and range of motion/strengthening exercises. MTDD
== END 2017-05-24 11:31 | disposition swing bed (61) | DRG 446 ==
LOC: ER 17:13 → MED/SURG 23:21 → OPS 05-21 10:52 → MED/SURG 05-21 11:38
PROVIDERS: ADMIT Internal Medicine; ATTEND Internal Medicine

== ENCOUNTER 2017-08-11 06:59 | Observation (INO) ==
[~2017-08-11 06:59] MED LIST: Iothalamate Meglumine 30 ML VIAL IV ONE; LIDOCAINE W/ SODIUM BICARB 0.5 ML SYR ONE; LIDOCAINE W/ SODIUM BICARB 0.5 ML SYR SUBD ONE; Lactated Ringers 1,000 ML PRIMARY IV ONE; Lactated Ringers 1,000 ML PRIMARY IV SCH; Sodium Chloride 0.9% vial 40 ML ONE; ceFAZolin Inj 2gm (Premix) 2 GM/50 ML BAG IV ONE
[2017-08-11] MEDS ORDERED: BUPIVACAINE 0.25% W/ EPI - 10 ML VIAL ONE ×2 (07:00→08:50)
[2017-08-11] MEDS ORDERED: Lactated Ringers 1,000 ML PRIMARY IV SCH ×3 (07:00→13:28)
[2017-08-11] MEDS ORDERED: LIDOCAINE W/ SODIUM BICARB 0.5 ML SYR SUBD ONE (07:00)
[2017-08-11] MEDS ORDERED: ceFAZolin Inj 2gm (Premix) 2 GM/50 ML BAG IV ONE (07:00)
[2017-08-11] MEDS ORDERED: ROCURONIUM 10 MG/1 ML - 5 ML VIAL IVP ONE (07:18)
[2017-08-11] MEDS ORDERED: LIDOCAINE MPF 2% - 5 ML (20 MG/1 ML) ONE (07:19)
[2017-08-11] MEDS ORDERED: fentaNYL Inj 250 MCG/5 ML VIAL ONE (07:19)
[2017-08-11] MEDS ORDERED: PROPOFOL 10 MG/1 ML (200 MG/20 ML) VIAL IV ONE (07:19)
[2017-08-11] MEDS ORDERED: MIDAZOLAM 5 MG/1 ML ONE (07:19)
[2017-08-11] MEDS ORDERED: ONDANSETRON 4 MG/2 ML VIAL ONE (08:15)
[2017-08-11] MEDS ORDERED: ePHEDrine Inj 50 MG/ML AMP ONE (08:16)
[2017-08-11] MEDS ORDERED: PHENYLEPHRINE 10,000 MCG/1 ML VIAL ONE (08:33)
[2017-08-11] MEDS ORDERED: Sodium Chloride 0.9% vial 10 ML ONE (08:33)
[2017-08-11] MEDS ORDERED: Lactated Ringers 1,000 ML PRIMARY IV ONE (08:37)
[2017-08-11] MEDS ORDERED: SUGAMMADEX SODIUM 200 MG/2 ML VIAL IV ONE (09:02)
--- NOTE | 2017-08-11 09:38 | DI ---
OPERATIVE CHOLANGIOGRAM, 08/11/2017 8:00 AM : Clinical History: Chronic cholecystitis. 6 films are submitted. Contrast is present on 5 films with reflux into the duodenum. There is no marito ined stone in the common hepatic or common bile ducts. The distal common bile duct on the initial 3 v iews with contrast show a small outpouching toward the ampullary side of the duct. This is probably i n the range of 1 mm in diameter and would be consistent with a small diverticulum at the ampulla. The remaining visualized portions of the intrahepatic biliary tree are normal. Reading: Normal operative cholangiogram. Incidental finding of what may represent a small diverticulum in the distal common bile duct near the ampulla.
[2017-08-11] MEDS ORDERED: KETOROLAC 30 MG/1 ML VIAL ONE (09:47)
--- NOTE | 2017-08-11 10:00 | GEN.OPNOTE ---
Operative Note Surgery Date: 08/11/17 Preoperative Diagnosis: Chronic cholecystitis and cholelithiasis. Postoperative Diagnosis: Chronic cholecystitis and cholelithiasis. Procedure: Laparoscopic cholecystectomy with intraoperative cholangiogram. Surgeon: Nader Gomez MD Dish Carrier: Other (Alyssa Razo PA-C) Anesthesia Provider: Bob Nation CRNA Anesthesia Type: General Estimated Blood Loss (mL): 10 Fluids: 1600 mL of crystalloid. 2 g of IV Ancef at the start of the procedure. 15 mg of IV Toradol at the end of the procedure. Pathology: Specimen to pathology. Indications: Patient with a very abnormal gallbladder ultrasound. His gallbladder had a thickened wall, stones and sludge. He presented to the hospital with some abdominal pain several months ago. We discussed things for a long time and he decided to have his gallbladder removed to prevent future complications. I felt his gallbladder needed to be removed because of the thick wall and chronic inflammation. Findings: Thick-walled gallbladder with stones and sludge. Adhesions to the gallbladder. Intraoperative cholangiogram showed a normal sized duct with a normal distal tapering. There was free flow into the duodenum. There were no filling defects. There was a normal branching pattern. Complications: None. Operative Summary: The patient was taken to the operating room and placed on the operating table in the supine position. Following induction of general anesthetic the abdomen was prepped and draped in a sterile fashion. A surgical timeout was done. The infraumbilical region was infiltrated with 1/4% Marcaine with epinephrine. An incision was made. The abdominal wall was elevated. A Veres needle was placed without apparent injury and a pneumoperitoneum was induced. The veres needle was withdrawn. A 10 mm trocar was placed without apparent injury and a laparoscope was inserted. Under direct visualization and following Marcaine injection a 10 mm trocar was placed in the epigastrium and 2x5 mm trochars were placed along the costal margin. The gallbladder was grasped and elevated. Blunt dissection was used to free the cystic duct. A clip was placed along the neck of the gallbladder. A hole was made in the side wall of the cystic duct. A Marianne cholangiocatheter was inserted. Intraoperative cholangiogram was taken and was normal as previously dictated. The Ranchita catheter was withdrawn. 2 clips were placed on the distal cystic duct and the duct was divided. The cystic artery was isolated. 2 clips were placed proximally and one distally and the artery was divided. The gallbladder was taken from the hepatic bed using electrocautery. The gallbladder was placed in an Endopouch. Hemostasis was assured. Appropriate irrigation and suctioning were performed. Final check for hemostasis was made. 5 mL of Marcaine was placed in the gallbladder fossa and 5 over the dome of the liver. The laparoscope was moved to the epigastric port. The gallbladder was grasped with a large grasper and brought up to the umbilical trocar site. The fascial defect at the umbilicus was slightly increased in size. The gallbladder was brought out through the trocar site without difficulty. The fascial defect at the umbilicus was closed with a running 0 Vicryl. A final check for hemostasis was made. The CO2 was burped from the abdominal cavity. The trochars were removed under direct visualization. The fascial defect in the epigastrium was closed with a simple stitch of 0 Vicryl. The skin wounds were closed with inverted interrupted or running subcuticular 4-0 Monocryl followed by Mastisol Steri-Strips and an appropriate dressing. Patient tolerated the procedure well without complication. Patient was taken to the recovery room in stable condition. All counts were correct.
[2017-08-11] MEDS ORDERED: HYDROcodone-APAP 5 MG -325 MG TABLET PO PRN (10:01)
[2017-08-11] MEDS ORDERED: ONDANSETRON 4 MG/2 ML VIAL IVP PRN ×2 (10:01→13:28)
[2017-08-11] MEDS ORDERED: MORPHINE SULFATE 2 MG/1 ML IVP PRN (10:01)
[2017-08-11] MEDS ORDERED: NORMAL SALINE 10 ML SYRINGE FLUSH IVP PRN ×2 (10:01→13:28)
--- NOTE | 2017-08-11 11:02 | CRNA.PROGR ---
Anesthesia Recovery Phase I - Post Anesthesia Evaluation Patient's Condition on Arrival in Phase I: Stable Pain Level: 0
--- NOTE | 2017-08-11 11:02 | CRNA.PROGR ---
Anesthesia Time - - Start date: 08/11/17 End date: 08/11/17 - Procedure/Recovery Time Anesthesia : Time In: 08:01 Anesthesia : Time Out: 09:57 Anesthesia : Total Time: 116 - Total Anesthesia Time Total Anesthesia Time (minutes): 116 - Other Weight: 64.864 kg Height: 5 ft 7 in Body Mass Index (BMI): 22.4 Physical Status: P3 Anesthesia Type: General Anesthesia : ET
--- NOTE | 2017-08-11 12:19 | PDOC(PROG) ---
General Note Progress Note: In outpatient surgery the patient's saturations have dropped down to 87% on room air. He lives alone. He has home aids but they cannot make arrangements for anybody to stay with him tonight. Patient has a history of frequent falls. We will put him on observation in the hospital tonight with planned discharge tomorrow. The home care consultant says they likely will have coverage available for him tomorrow night at which point it would be safe to send him home. Patient is stable postoperatively. He is awake and alert. His abdomen is soft. Patient Problems - Patient Problem List (1) Status post laparoscopic cholecystectomy Current Visit: Yes Status: Acute Onset Date: 08/11/17 Comment: Stable. Continue postoperative care. Code(s): Z90.49 - Acquired absence of other specified parts of digestive tract Category: Medical (2) At risk for falling Current Visit: Yes Status: Acute Comment: Monitor overnight until anesthetic has completely resolved. Plan home tomorrow. Code(s): Z91.81 - History of falling Category: Medical
[2017-08-11] MEDS ORDERED: TOBRAMYCIN EACH EYE SCH (13:28)
[2017-08-11] MEDS ORDERED: FINASTERIDE 5 MG TABLET PO SCH ×2 (13:28→21:00)
[2017-08-11] MEDS ORDERED: DEXAMETHASONE EACH EYE SCH (13:28)
[2017-08-11] MEDS: LISINOPRIL 5 MG TABLET PO SCH (14:07)
[2017-08-11] MEDS: CITALOPRAM 20 MG TABLET PO SCH (14:10)
[2017-08-11] MEDS ORDERED: KETOROLAC 15 MG/1 ML VIAL IVP PRN (15:00)
[2017-08-11] MEDS: HYDROcodone-APAP 5 MG -325 MG TABLET PO PRN ×2 (18:05→22:17)
[2017-08-11] MEDS: GUAIFENESIN 600 MG TABLET PO SCH (20:14)
[2017-08-11] MEDS: TIMOLOL OP SCH (20:15)
[2017-08-11] MEDS: BETAXOLOL HCL 0.25% OP SCH (20:15)
[2017-08-11] MEDS: DORZOLAMIDE OP SCH (20:15)
[2017-08-11] MEDS: DOCUSATE 100 MG CAPSULE PO SCH (20:15)
[2017-08-11] MEDS ORDERED: TRAVOPROST 0.004% EACH EYE SCH (21:00)
[2017-08-11] MEDS ORDERED: EYE EACH EYE SCH (21:00)
[2017-08-12] MEDS ORDERED: LEVOTHYROXINE 75 MCG TABLET PO SCH (05:30)
[2017-08-12] MEDS: DOCUSATE 100 MG CAPSULE PO SCH (08:17)
[2017-08-12] MEDS: LISINOPRIL 5 MG TABLET PO SCH (08:17)
[2017-08-12] MEDS: CITALOPRAM 20 MG TABLET PO SCH (08:17)
[2017-08-12] MEDS: BETAXOLOL HCL 0.25% OP SCH (08:17)
[2017-08-12] MEDS: GUAIFENESIN 600 MG TABLET PO SCH (08:17)
[2017-08-12] MEDS: DORZOLAMIDE OP SCH (08:18)
[2017-08-12] MEDS: TIMOLOL OP SCH (08:18)
[2017-08-12 11:19] VITALS: BP 135/63; RESP 20; TEMP 98.9; O2SAT 94
--- NOTE | 2017-08-12 13:05 | DCSUMMARY ---
Discharge Summary Admit Date: 08/11/17 Discharge Date: 08/12/17 Admitting Diagnosis: status post laparoscopic cholecystectomy with intraoperative cholangiogram. Discharge Diagnosis: Status post laparoscopic cholecystectomy with intraoperative cholangiogram. Resolved hypoxia. Primary Surgery and Date: Laparoscopic cholecystectomy with intraoperative cholangiogram 08/11/2017 Hospital Course: Patient was admitted post cholecystectomy for overnight observation. He is now 94% saturated on room air. He is a chronic fall risk but feels he is close to baseline. He feels comfortable going home with his homemaking rehabilitation consultant. I think he will do fine. There is no medical indication to keep him hospitalized. We will plan discharge home for outpatient follow-up. Exam - Vitals Vital Signs: Vital Signs Temperature 98.9 F Temperature Source Temporal Artery Scan Pulse Rate [Apical] 96 Pulse Rate [Pulse Oximeter] 104 Pulse Rate 83 Respiratory Rate 20 Blood Pressure [Right Arm] 135/63 Blood Pressure 141/85 Pulse Ox 94 Oxygen Flow Rate 1 Oxygen Delivery Method Room Air Height 5 ft 7 in Weight 139 lb 6.4 oz - General General Appearance: No Acute Distress, Cooperative - Respiratory Respiratory Exam: POSITIVE: Clear to Auscultation - Bilaterally, Breathing Non Labored - Cardiovascular Cardiovascular Exam: POSITIVE: RRR, No Murmur - GI/Abdominal GI/Abdominal Exam: POSITIVE: Normal Bowel Sounds, Non Distended, Soft Additional GI/Abdominal Exam Details: Mild incisional tenderness. - Neurological Neurological Exam: POSITIVE: Alert, Oriented x 3 - Psychiatric Psychiatric Exam: POSITIVE: Normal Affect, Normal Mood Data Procedures: Laparoscopic cholecystectomy with intraoperative cholangiogram on 08/11/2017. Patient Problems - Patient Problem List (1) Status post laparoscopic cholecystectomy Current Visit: Yes Status: Acute Onset Date: 08/11/17 Comment: Stable. Ready for discharge. Code(s): Z90.49 - Acquired absence of other specified parts of digestive tract Category: Medical (2) At risk for falling Current Visit: Yes Status: Acute Comment: Back to baseline. Home with homemaking rehabilitation consultant. There is a possibility that the homemaking rehabilitation consultant can spend the night but they can at least get him home and settled. The homemaking rehabilitation consultant is with him daily from 9 AM to noon. Code(s): Z91.81 - History of falling Category: Medical
== END 2017-08-12 14:10 | disposition home or self-care (01) ==
LOC: MED/SURG 06:59 → OR 06:59
PROVIDERS: ADMIT Surgery; ATTEND Surgery

== ENCOUNTER 2018-07-20 20:36 | Inpatient (IN) ==
[2018-07-20] MEDS ORDERED: Sodium Chloride 0.9% 1,000 ML PRIMARY IV ONE (20:50)
[2018-07-20] MEDS ORDERED: MORPHINE SULFATE 2 MG/1 ML IVP ONE (20:51)
[2018-07-20] MEDS ORDERED: ONDANSETRON 4 MG/2 ML VIAL IVP ONE (20:52)
[2018-07-20 21:30] LABS: BASOPHILS # (AUTO) 0.04 10*3/UL; BASOPHILS % (AUTO) 0.4 % (0-1); EOSINOPHILS # (AUTO) 0.15 10*3/UL; EOSINOPHILS % (AUTO) 1.7 % (0-8); Hematocrit [HCT] 41.2 % (42.0-52.0); LYMPHOCYTES # (AUTO) 3.13 10*3/uL; MEAN CORPUSCULAR HEMOGLOBIN 29.4 PG (27-31); MEAN CORPUSCULAR HGB CONC 31.6 g/dL (33-37); MEAN CORPUSCULAR VOLUME 93.2 FL (80-90); MEAN PLATELET VOLUME 10.2 FL (7.4-12.2); MONOCYTES # (AUTO) 0.61 10*3/UL (0.3-0.8); MONOCYTES % (AUTO) 6.7 % (5-15); NEUTROPHILS # (AUTO) 5.15 10*3/UL; NEUTROPHILS % (AUTO) 56.7 % (50-80); RED BLOOD COUNT 4.42 10^6/uL (4.70-6.10)
[2018-07-20 21:31] LABS: PLATELET MORPHOLOGY COMMENT NORMAL MORPHOLOGY (NORM); RBC MORPHOLOGY COMMENT NORMAL MORPHOLOGY (NORM); WBC MORPHOLOGY COMMENT NORMAL MORPHOLOGY (NORM)
--- NOTE | 2018-07-20 21:35 | DI ---
AP CHEST X-RAY, 07/20/2018 8:47 PM : Clinical History: Right-sided chest pain following a fall. Previous Exam: 12/20/2017. Soft Tissues: No acute soft tissue abnormality. No subcutaneous emphysema. Bones: Normal. No acute rib fracture is identified. Heart: Normal heart. Lungs: 20% right pneumothorax without mediastinal shift. Mediastinum: Normal mediastinum. Nodules: No pulmonary nodules. Readin% right-sided pneumothorax without mediastinal shift. No definite rib fracture is seen.
[2018-07-20 21:39] LABS: BLOOD UREA NITROGEN 15 mg/dL (7-22); BUN/CREATININE RATIO 18.75 (6-20); SERUM ALBUMIN 4.1 g/dL (3.5-4.8)
--- NOTE | 2018-07-20 21:58 | PDOC ---
HPI - History of Present Illness Date of Service: 07/20/18 Time of Service: 21:53 Chief Complaint: 77-year-old gentleman who lost his balance while putting socks way and fell and hit the corner of his dresser of his right side. Patient became short of breath. In the field is 84% on room air. With 4 L of oxygen he came up to 94%. He remains hemodynamically stable. History of Present Illness: This 77-year-old gentleman who off and socks way across his balance and hit the right side of his chest on a dresser. He was short of breath in the field and had 84% on room air the field. Since oxygen was placed at 4 L he is a 94% he remains hemodynamically stable. Patient states that this occurred roughly around 7 PM. He denies any shortness of breath at this time. He states his inner ear problem that causes and loses balance. Patient tells me a few weeks ago he had a 10% pneumothorax Past Medical History Medical History: 1. Hypertension. 2. Hypothyroidism. 3. Osteoporosis. 4. Macular degeneration. 5. BPH. 6. Hearing loss. 7. Depression. 8. History of large fiber neuropathy Surgical History: 1. Bilateral stapedectomy with replacement stapes. 2. Dilatation of distal esophagus. 3. Colonoscopy 2. Normal by report. 4. Bilateral cataract extractions. Past Social History: Patient lives by himself, doesn't drink, no drugs. Doesn't smoke. In the Past 12 Months, Have Used or Abuse Any of the Following Substance: None Medication / Allergies Home Medications: Home Medications Medication Instructions Recorded Confirmed Type Dorzolamide HCl/Timolol Maleat 1 drp OP BID 1 Days drp 10/25/11 12/19/17 History [Cosopt Eye Drops] Betaxolol HCl [Betoptic S] 2 drp OP BID 30 Days drp 09/22/12 12/19/17 History Tobramycin Sulf/Dexamethasone 1 drp OP q48 drp 02/17/17 12/19/17 History [Tobradex Eye Drops] denosumab 60 mg/mL subcutaneous 60 mg SUBCUT [id number] #1 ml 07/16/17 12/19/17 History syringe finasteride 5 mg tablet 5 mg PO QDAY tab 07/16/17 12/19/17 History ranibizumab 0.5 mg/0.05 mL 0.5 mg INVTRL QMONTH ml 07/16/17 12/19/17 History intravitreal solution for injection travoprost 0.004 % eye drops 1 drp OP QDAY drp 07/16/17 12/19/17 History lisinopril 5 mg tablet 5 mg PO QDAY #90 tab 03/23/18 Rx citalopram 20 mg tablet 30 mg PO QDAY #135 tab 05/20/18 05/20/18 Rx linaclotide 72 mcg capsule 72 mcg Capsule#10 Samples 05/20/18 05/20/18 Sample levothyroxine 75 mcg tablet 75 mcg PO QDAY #90 tab 07/07/18 Rx linaclotide 145 mcg capsule 145 mcg Capsule#10 Samples 07/15/18 Sample Allergies/Adverse Reactions: Allergies Allergy/AdvReac Type Severity Reaction Status Date / Time banana Allergy NAUSEA Verified 05/20/18 09:29 Cucumbers Allergy Mild NAUSEA Uncoded 05/20/18 09:29 Melons Allergy Mild NAUSEA Uncoded 05/20/18 09:29 Review of Systems - Constitutional Constitutional: REPORTS: Negative System Review, General Health Fair - Integumentary Integumentary: REPORTS: Negative System Review - Respiratory Respiratory: REPORTS: See HPI - Cardiovascular Cardiovascular: REPORTS: Negative System Review - Gastrointestinal Gastrointestinal / Abdominal: REPORTS: Negative System Review - Genitourinary Genitourinary: REPORTS: Negative System Review - Musculoskeletal Musculoskeletal: REPORTS: Negative System Review - Neurological Neurologic: REPORTS: Negative System Review - Psychiatric Psychiatric: REPORTS: Negative System Review Exam - General General Appearance: No Acute Distress, Cooperative - Head Head Exam: Normal Inspection, Normocephalic - Eye Eye Exam: POSITIVE: PERRL, EOMI - Neck Neck Exam: Normal Inspection, Full ROM, No Tenderness - Respiratory Additional Respiratory Exam Details: Patient has decreased breath sounds in the right side. Otherwise clear - Cardiovascular Cardiovascular Exam: POSITIVE: No Murmur, No Clicks, No Gallops, No Rubs - GI/Abdominal GI/Abdominal Exam: POSITIVE: Normal Bowel Sounds, Non Tender, Non Distended, Soft, No Hepatomegaly, No Splenomegaly Results - Labs CBC and BMP: 07/20/18 21:20 07/20/18 21:20 Assessment and Plan - Patient Problems (1) Pneumothorax Current Visit: No Status: Acute Code(s): J93.9 - Pneumothorax, unspecified - Assessment / Plan Additional Assessment/Plan Details: Patient has a right-sided pneumothorax. He states that at this time he does not want a surgical procedure done. Therefore rubidium to the hospital to serial chest x-rays will document whether this is stable or getting worse. If he develops acute shortness of breath he'll get a chest tube. The patient does understand the risk involved if he does not get a chest tube in the possibility of developing a tension pneumothorax. With his known information he still declines having the chest to place at this time.
--- NOTE | 2018-07-20 22:04 | DI ---
EXAM: CT Head Without Intravenous Contrast CLINICAL HISTORY: ITS.REASON fall Physician Notes: Tech Comments: TECHNIQUE: Axial computed tomography images of the head/brain without intravenous contrast. COMPARISON: No relevant prior studies available. FINDINGS: Brain: Involutional changes with small vessel disease. No intracranial hemorrhage. Ventricles: No ventriculomegaly. Bones/joints: No acute fracture. Soft tissues: Unremarkable. Sinuses: No acute sinusitis. Mastoid air cells: No mastoid effusion. Orbits: Cataract surgery. IMPRESSION: No intracranial hemorrhage or skull fracture.
--- NOTE | 2018-07-20 22:06 | DI ---
EXAM: CT Cervical Spine Without Intravenous Contrast CLINICAL HISTORY: ITS.REASON fall Physician Notes: Tech Comments: TECHNIQUE: Axial computed tomography images of the cervical spine without intravenous contrast. COMPARISON: No relevant prior studies available. FINDINGS: Vertebrae: No fracture or malalignment. Discs/spinal canal/neural foramina: Degenerative changes. Soft tissues: Unremarkable. Pleural space: Right pneumothorax, partially visualized. IMPRESSION: 1. No fracture or malalignment. 2. Right pneumothorax, partially visualized.
--- NOTE | 2018-07-20 22:17 | EKG ---
[address] [address] Measurements Intervals [place] Rate: 83 P: 80 ID: [id number] QRS: 73 QRSD: 106 T: 76 QT: 369 QTc: 409 Interpretive Statements SINUS RHYTHM POSSIBLE LEFT ATRIAL ENLARGEMENT Compared to ECG 08/26/2017 15:00:30 ST CHANGES OF EARLY REPOLARIZATION Electronically Signed On 07-21-18 08:35:32 MST by Dion Shabazz [email or web address]
[2018-07-20] MEDS ORDERED: Lidocaine Inj 1% 20 ML ONE (22:45)
--- NOTE | 2018-07-20 22:56 | GEN.OPNOTE ---
Operative Note Surgery Date: 07/20/18 Preoperative Diagnosis: Right pneumothorax Postoperative Diagnosis: Right pneumothorax Procedure: Thoracentesis Surgeon: Seamus Miranda MD Anesthesia Type: Local Estimated Blood Loss (mL): 0 Indications: 77-year-old gentleman who fell today sustaining a 20% pneumothorax. We watching for an overall repeat the chest x-ray and it showed that the pneumothorax was margin therefore is felt it was best with the thoracentesis catheter and to alleviate the potential for a tension pneumothorax Operative Summary: After informed verbal and written permission, identified the patient by [address] patient in Supine position. Prepped the right chest wall with Betadine. Infiltrated 2% Xylocaine with epinephrine for local anesthetic. Made a small incision in the mid clavicular line approximately second to third intercostal space. Place an 11 [place]ian thoracentesis tray catheter into the chest cavity. I then aspirated out 420 mL of air. Patient was breathing better. Patient remained hemodynamically stable. Additional Details: It is felt that since patient has CT scan to chest x-rays today that is best away for follow-up chest x-ray in the morning. Patient was hemodynamically stable and O2 saturations were 100% Patient Problems - Patient Problem List (1) Pneumothorax Current Visit: No Status: Acute Code(s): J93.9 - Pneumothorax, unspecified Category: Medical Procedure Codes - Catheterization/Mediport Procedures Primary Catheterization/Mediport Procedure: 05510 : Tube Thoracostomy
[2018-07-20] MEDS ORDERED: DOCUSATE 100 MG CAPSULE PO PRN (23:25)
[2018-07-20] MEDS ORDERED: ONDANSETRON 4 MG/2 ML VIAL IVP PRN (23:25)
[2018-07-20] MEDS ORDERED: CALCIUM CARBONATE 500 MG (TUMS) CHEWABLE TABLET PO PRN (23:25)
[2018-07-20] MEDS ORDERED: LIDOCAINE W/ SODIUM BICARB 0.5 ML SYR SUBD PRN (23:25)
[2018-07-20] MEDS ORDERED: ACETAMINOPHEN 325 MG TABLET PO PRN (23:25)
--- NOTE | 2018-07-20 23:27 | PDOC ---
Fall HPI - General Chief Complaint: Fall Stated Complaint: FALL Date Seen by Provider: 07/20/18 Time Seen by Provider: 22:00 Source: POSITIVE: Patient, EMS Exam Limitations: POSITIVE: No limitations Nurse's Notes Reviewed & Considered: Yes EMS Report Reviewed & Considered: Verbal - History of Present Illness Initial Comments: The patient is a 77-year-old male who presents to the emergency department by ambulance after a fall at home with left-sided posterior chest wall pain and shortness of breath. The patient states that he lost his balance and fell hitting the back of his right upper chest on his dresser. He states he has significant pain to his right chest and shortness of breath. EMS was called and when they arrived the patient was pale and diaphoretic. His oxygen saturations were in the mid to low 80s on room air. He was placed on oxygen which brought his oxygen saturations to the mid 90s on 4 L. He was subsequently transported here to the emergency department. The patient's primary complaint is right posterior chest wall pain however this does extend around anteriorly as well. He also reports headache. He does not currently take any blood thinner medications. He states that he has significant problems with dizziness and has had multiple falls in the past. Have you received a tetanus shot in the past 10 years?: No - Patient Home Medications Home Medications: Home Medications Dorzolamide HCl/Timolol Maleat [Cosopt Eye Drops] 1 drp OP BID 1 Days drp 10/25/11 Betaxolol HCl [Betoptic S] 2 drp OP BID 30 Days drp 09/22/12 Tobramycin Sulf/Dexamethasone [Tobradex Eye Drops] 1 drp OP q48 drp 02/17/17 denosumab 60 mg/mL subcutaneous syringe 60 mg SUBCUT [id number] #1 ml 07/16/17 finasteride 5 mg tablet 5 mg PO QDAY tab 07/16/17 ranibizumab 0.5 mg/0.05 mL intravitreal solution for injection 0.5 mg INVTRL QMONTH ml 07/16/17 travoprost 0.004 % eye drops 1 drp OP QDAY drp 07/16/17 lisinopril 5 mg tablet 5 mg PO QDAY #90 tab 03/23/18 citalopram 20 mg tablet 30 mg PO QDAY #135 tab 05/20/18 levothyroxine 75 mcg tablet 75 mcg PO QDAY #90 tab 07/07/18 - Patient Allergies Allergies/Adverse Reactions: Allergies Allergy/AdvReac Type Severity Reaction Status Date / Time banana Allergy NAUSEA Verified 05/20/18 09:29 Cucumbers Allergy Mild NAUSEA Uncoded 05/20/18 09:29 Melons Allergy Mild NAUSEA Uncoded 05/20/18 09:29 Past Medical History - heen HEENT History: Glaucoma, Macular Degeneration, Hard of Hearing Additional HEENT History: DENIES MENIERE'S BUT REPORTS VERTIGO. DIFFICULTY SWALLOWING. DISEQUILIBRIUM Cardiovascular History: Hypertension, PVD, Syncope Respiratory History: Other (please comment) Additional Respiratory History: LARYNGEAL SPASMS Gastrointestinal History: Diverticulitis, Other (please comment) Additional Gastrointestinal History: CONSTIPATION. DIVERTICULOSIS Genitourinary History: Incontinence Endocrine History: Hypothyroidism Musculoskeletal History: Osteoporosis, Muscle Weakness Prosthesis or Implant: No Additional Musculoskeletal History: MULTIPLE FALLS. NEUROPATHY Neurological History: Other (please comment) Additional Neurological History: VERTIGO/ LOSS OF PROPRIOCEPTION, STAPEES REPLACED BILAT EARS Blood Disorders: Denies History Psychiatric History: Depression History of Sexually Transmitted Diseases: No Cancer History: Denies History In Past Year Been Physically Harmed or Verbally Threatened: No History of MDRO: No History of Other Communicable Diseases: No Tobacco Use: Never Smoker Alcohol Use: Rarely In the Past 12 Months, Have Used or Abuse Any Substance: None Previous Surgical History: Yes Type / Date of Surgery: STAPEES REPLACED BILAT EARS, LAZER SURGERY FOR DETACHED RETINA, T&A,EGD,COLONOSCOPY,BILATERAL CATARACTS Anesthesia Reactions: No Malignant Hyperthermia: No Significant Family History: Heart disease, Cancer Past Medical History Reviewed: Reviewed - No Changes ROS - Limitations ROS Limitations: No Limitations Constitution: DENIES: Chills, Fever Cardiovascular: REPORTS: Chest Pain (Right-sided chest wall pain) Respiratory: REPORTS: Shortness Of Breath. DENIES: Wheezing Neurological: REPORTS: Headache. DENIES: Numbness, Weakness Gastrointestinal: DENIES: Abdominal Pain Musculoskeletal: REPORTS: Other (No injuries to the extremities). DENIES: Lower Extremity Swelling Genitourinary: REPORTS: Denies Symptoms Eyes: REPORTS: Denies Symptoms ENT: REPORTS: Denies Symptoms Skin: DENIES: Rash Fall Physical Exam - General Appearance General Appearance: POSITIVE: Alert, Cooperative, No Acute Distress - HEENT HEENT: POSITIVE: Head Inspection Nml, Eyes Inspection Nml, Ears Inspection Nml, Nose Inspection Nml, Pharynx Inspect. Nml - Neck Neck: POSITIVE: Trachea Midline - Respiratory / CVS Respiratory / CVS: POSITIVE: Heart Sounds Normal, Regular Rate/Rhythm, Other (He does have tenderness to the right anterior and posterior chest wall with no crepitus, breath sounds are significantly diminished on the right side, bedside ultrasound reveals no sliding to the right anterior chest wall with good sliding on the left anterior chest wall) - Abdomen Abdomen: Soft: (All Quadrants), Denies Tenderness: (All Quadrants), No Disten tion: (All Quadrants) - Neuro / Psych Neuro / Psych: POSITIVE: Oriented X3, manager water wastewater Normal As Tested, Motor Normal, Sensation Normal Fall Progress - Results Reviewed by me Xrays/CTs/US Reviewed by me: Yes Discussed with Radiologist: Yes CBC and BMP: 07/20/18 21:20 07/20/18 21:20 Lab Results:: Laboratory Results 07/20/18 07/20/18 07/20/18 21:20 21:20 21:20 WBC 9.09 RBC 4.42 L Hgb 13.0 L Hct 41.2 L MCV 93.2 H MCH 29.4 MCHC 31.6 L RDW Std Deviation 47.2 RDW Coeff of Alissa 14.2 Plt Count 268 MPV 10.2 Immature Gran % (Auto) 0.1 Neut % (Auto) 56.7 Lymph % (Auto) 34.4 [place] % (Auto) 6.7 Eos % (Auto) 1.7 Baso % (Auto) 0.4 Immature Gran # (Auto) 0.01 Neut # (Auto) 5.15 Lymph # (Auto) 3.13 [place] # (Auto) 0.61 Eos # (Auto) 0.15 Baso # (Auto) 0.04 WBC Morphology Comment Normal morphology Plt Morphology Comment Normal morphology RBC Morph Comment Normal morphology PT 10.0 INR 0.97 Sodium 139 Potassium 3.8 Chloride 101 Carbon Dioxide 32 Anion Gap 6 BUN 15 Creatinine 0.8 BUN/Creatinine Ratio 18.75 Glucose 130 H Calculated Osmolality 290.0 Calcium 9.2 Total Bilirubin 0.5 AST 25 ALT 25 Alkaline Phosphatase 74 Troponin I Total Protein 7.3 Albumin 4.1 Globulin 3.2 Albumin/Globulin Ratio 1.20 L 07/20/18 21:20 WBC RBC Hgb Hct MCV MCH MCHC RDW Std Deviation RDW Coeff of Alissa Plt Count MPV Immature Gran % (Auto) Neut % (Auto) Lymph % (Auto) [place] % (Auto) Eos % (Auto) Baso % (Auto) Immature Gran # (Auto) Neut # (Auto) Lymph # (Auto) [place] # (Auto) Eos # (Auto) Baso # (Auto) WBC Morphology Comment Plt Morphology Comment RBC Morph Comment PT INR Sodium Potassium Chloride Carbon Dioxide Anion Gap BUN Creatinine BUN/Creatinine Ratio Glucose Calculated Osmolality Calcium Total Bilirubin AST ALT Alkaline Phosphatase Troponin I < 0.012 Total Protein Albumin Globulin Albumin/Globulin Ratio - Patient's Progress MDM / ED Course: On arrival the patient was hemodynamically stable. His oxygen saturations were in the mid 90s on 4 L per nasal cannula. He did have markedly diminished breath sounds on the right side on exam and bedside ultrasound revealed no sliding to the right anterior chest wall. Subsequent portable chest x-ray did show a 20% pneumothorax. An IV had been established per EMS and blood was sent to the lab. Dr. Miranda was consulted from general surgery. The patient was sent for further imaging and CT as he did appear to be hemodynamically stable. CT scan of his head and cervical spine showed no acute injury per radiologist. CT scan of the chest did reveal the pneumothorax and multiple rib fractures on the right side and a nondisplaced sternal fracture of unknown acuity per radiologist. CT of the chest abdomen pelvis showed no other acute injuries per radiologist. Dr. Miranda had initially discussed options with the patient and he had wanted to try nonoperative management. Repeat chest x-ray however showed worsening pneumothorax and decision was made to decompress her Dr. Miranda. This was done the patient was subsequently admitted to the floor. - Consult Counseled: POSITIVE: Patient, Family, RE: Lab Results, RE: Radiology Results, RE: DX, RE: Need for F/U Patient Care Time - Estimated PCT Patient Care Time (In Minutes): 30 Vital Signs - Recent Vital Signs Vital Signs: Vital Signs (Last 8 hours) Temp Pulse Resp BP Pulse Ox 07/20/18 20:45 98.0 F 77 22 170/98 93 - VS Reviewed Vital Signs Reviewed: Yes Discharge Clinical Impression: Pneumothorax, right Ribs, multiple fractures Qualifiers: Encounter type: initial encounter Fracture type: closed Laterality: right Qualified Code(s): S22.41XA - Multiple fractures of ribs, right side, initial encounter for closed fracture Discharge Disposition: Admit to Inpatient Condition: Fair Date Decision to Admit to Inpatient: 07/21/18 Time Decision to Admit to Inpatient: 21:50
[2018-07-20] MEDS ORDERED: KETOROLAC 15 MG/1 ML VIAL IVP ONE (23:32)
[2018-07-20] MEDS: HYDROcodone-APAP 5 MG -325 MG TABLET PO PRN (23:52)
[2018-07-21] MEDS: HYDROcodone-APAP 5 MG -325 MG TABLET PO PRN (03:38)
--- NOTE | 2018-07-21 07:59 | DI ---
EXAM: CT Abdomen and Pelvis With Intravenous Contrast CLINICAL HISTORY: ITS.REASON fall Physician Notes: Tech Comments: TECHNIQUE: Axial computed tomography images of the abdomen and pelvis with intravenous contrast. COMPARISON: No relevant prior studies available. FINDINGS: Pleural space: Right pneumothorax. ABDOMEN: Liver: Unremarkable. Gallbladder and bile ducts: Cholecystectomy. Pancreas: Unremarkable. Spleen: Calcified granulomas in the liver and spleen. Adrenals: Unremarkable. Kidneys and ureters: Unremarkable. No hydronephrosis. Stomach and bowel: Redundant colon and colonic diverticula. Underdistention or mild thickening in the sigmoid colon and adjacent small nodes. PELVIS: Appendix: No findings to suggest acute appendicitis. Bladder: Unremarkable. Reproductive: Unremarkable. ABDOMEN and PELVIS: Intraperitoneal space: Unremarkable. Bones/joints: No acute fracture. Soft tissues: Unremarkable. Vasculature: No abdominal aortic aneurysm. Lymph nodes: See above. IMPRESSION: 1. No traumatic findings in the abdomen or pelvis. 2. Redundant colon and colonic diverticula. Underdistention or mild thickening in the sigmoid colon and adjacent small nodes. Could be mild colitis/diverticulitis in the appropriate clinical setting. Follow resolution to exclude neoplastic mimic.
--- NOTE | 2018-07-21 07:59 | DI ---
EXAM: CT Chest With Intravenous Contrast CLINICAL HISTORY: ITS.REASON fall Physician Notes: Tech Comments: TECHNIQUE: Axial computed tomography images of the chest with intravenous contrast. COMPARISON: No relevant prior studies available. FINDINGS: Lungs: Bilateral atelectasis/pneumonitis. Can't exclude a component of contusions in the right lung. Pleural space: Moderate right pneumothorax. Heart: No cardiomegaly. No pericardial effusion. Bones/joints: Acute fractures of the right fifth and sixth ribs and age indeterminant fractures of the right ninth and 10th ribs. Subtle sternal fracture. Vasculature: No thoracic aortic transection. Lymph nodes: Predominantly small mediastinal and hilar nodes. IMPRESSION: 1. Moderate right pneumothorax. 2. Subtle sternal fracture. 3. Acute fractures of the right fifth and sixth ribs and age indeterminant fractures of the right ninth and 10th ribs. Critical Value Communications 07/20/18 22:23 Call Doctor Regarding Other, called Dr. Oquendo on 07/20 22:23 (-07:00)
--- NOTE | 2018-07-21 08:01 | DI ---
AP CHEST X-RAY, 07/21/2018 7:00 AM : Clinical History: Right pneumothorax. Previous Exam: 07/20/2016. Soft Tissues: No acute soft tissue abnormality. No subcutaneous emphysema noted. Bones: Right lateral sixth rib fracture. Heart: Normal heart. Lungs: Less than 1% apical residual pneumothorax. No infiltrate. Mediastinum: Normal mediastinum. Calcified subcarinal lymph nodes. Nodules: No pulmonary nodules. Readin. Residual less than 1% right apical pneumothorax. 2. Calcified subcarinal lymph node indicating old granulomatous disease.
--- NOTE | 2018-07-21 14:32 | DCSUMMARY ---
Discharge Summary Admit Date: 07/20/18 Discharge Date: 07/21/18 Admitting Diagnosis: right rib fractures;Right pneumothorax Discharge Diagnosis: Right pneumothorax; multiple rib fractures right Primary Surgery and Date: 07/20/2018 tube thoracotomy Hospital Course: Patient overall is doing a lot better. He has no chest pain. He has no difficulty breathing. Chest x-ray shows a 1% pneumothorax. Because the patient has a thoracic vent, he can be discharged home and follow-up in 2 days. Exam - Vitals Vital Signs: Vital Signs Temperature 98.3 F Temperature Source Temporal Artery Scan Pulse Rate [Pulse Oximeter] 78 Pulse Rate 88 Respiratory Rate 19 Blood Pressure [Right Arm] 159/78 Blood Pressure [Left Arm] 135/67 Blood Pressure 152/79 Pulse Ox 100 Oxygen Flow Rate 2 Oxygen Delivery Method Nasal Cannula Height 5 ft 7 in Weight 150 lb - General General Appearance: No Acute Distress - Eye Eye Exam: POSITIVE: PERRL, EOMI - Respiratory Respiratory Exam: POSITIVE: Clear to Auscultation - Bilaterally, Breathing Non Labored - Cardiovascular Cardiovascular Exam: POSITIVE: RRR, No Murmur, No Clicks, No Gallops, No Rubs, PMI Non-Displaced Patient Problems - Patient Problem List (1) Pneumothorax Current Visit: No Status: Acute Code(s): J93.9 - Pneumothorax, unspecified Category: Medical
== END 2018-07-21 15:41 | disposition home or self-care (01) | DRG 200 ==
LOC: ER 20:36 → MED/SURG 22:19
PROVIDERS: ADMIT Surgery; ATTEND Surgery

== ENCOUNTER 2018-10-09 19:58 | Inpatient (IN) ==
[2018-10-09] MEDS ORDERED: Sodium Chloride 0.9% 1,000 ML PRIMARY IV ONE (20:01)
--- NOTE | 2018-10-09 20:18 | PDOC ---
General Adult HPI - General Chief Complaint: Neurological Complaints Stated Complaint: weakness, unsteady, diarrhea - poss stroke symptom Date Seen by Provider: 10/09/18 Time Seen by Provider: 20:00 Source: POSITIVE: Patient, Other (Caregiver) Exam Limitations: POSITIVE: No limitations Nurse's Notes Reviewed & Considered: Yes - History of Present Illness Initial Comment: The patient is a 77-year-old male who is brought to the emergency department by ambulance with concern about possible stroke symptoms. The patient's caregiver reports that this evening he seems very weak. His caregiver also states that he had some slurred speech at home. His caregiver noticed these symptoms approximately an hour and a half ago. She states that he was having a difficult time standing by himself. He also seemed to be leaning to the right at home. EMS was called and when they arrived the patient did not appear to exhibit any focal neurologic deficits. On arrival to the emergency department the patient denies headache, chest pain or shortness of breath. His speech is normal. He does have diarrhea which is apparently chronic for him. He also has some cough which is also not unusual for him. He does not have any fevers or chills. Have you received a tetanus shot in the past 10 years?: Yes - Patient Home Medications Home Medications: Home Medications Dorzolamide HCl/Timolol Maleat [Cosopt Eye Drops] 1 drp OP BID 1 Days drp 10/25/11 Betaxolol HCl [Betoptic S] 2 drp OP BID 30 Days drp 09/22/12 Tobramycin Sulf/Dexamethasone [Tobradex Eye Drops] 1 drp OP q48 drp 02/17/17 denosumab 60 mg/mL subcutaneous syringe 60 mg SUBCUT [id number] #1 ml 07/16/17 finasteride 5 mg tablet 5 mg PO QDAY tab 07/16/17 ranibizumab 0.5 mg/0.05 mL intravitreal solution for injection 0.5 mg INVTRL QMONTH ml 07/16/17 travoprost 0.004 % eye drops 1 drp OP QDAY drp 07/16/17 lisinopril 5 mg tablet 5 mg PO QDAY #90 tab 03/23/18 citalopram 20 mg tablet 30 mg PO QDAY #135 tab 05/20/18 levothyroxine 75 mcg tablet 75 mcg PO QDAY #90 tab 07/07/18 imipramine 10 mg tablet 10 mg PO ONCE tab 08/24/18 imipramine 25 mg tablet 25 mg PO ONCE 08/24/18 - Patient Allergies Allergies/Adverse Reactions: Allergies Allergy/AdvReac Type Severity Reaction Status Date / Time banana Allergy NAUSEA Verified 10/09/18 19:58 Cucumbers Allergy Mild NAUSEA Uncoded 10/09/18 19:58 Melons Allergy Mild NAUSEA Uncoded 10/09/18 19:58 Past Medical History - heen HEENT History: Glaucoma, Macular Degeneration, Hard of Hearing Additional HEENT History: DENIES MENIERE'S BUT REPORTS VERTIGO. DIFFICULTY SWALLOWING. DISEQUILIBRIUM Cardiovascular History: Hypertension, PVD, Syncope Respiratory History: Other (please comment) Additional Respiratory History: LARYNGEAL SPASMS Gastrointestinal History: Diverticulitis, Other (please comment) Additional Gastrointestinal History: CONSTIPATION. DIVERTICULOSIS Genitourinary History: Incontinence Endocrine History: Hypothyroidism Musculoskeletal History: Osteoporosis, Muscle Weakness Prosthesis or Implant: No Additional Musculoskeletal History: MULTIPLE FALLS. NEUROPATHY Neurological History: Other (please comment) Additional Neurological History: VERTIGO/ LOSS OF PROPRIOCEPTION, STAPEES REPLACED BILAT EARS Blood Disorders: Denies History Psychiatric History: Depression History of Sexually Transmitted Diseases: No Cancer History: Denies History In Past Year Been Physically Harmed or Verbally Threatened: No History of MDRO: No History of Other Communicable Diseases: No Tobacco Use: Never Smoker Alcohol Use: Rarely In the Past 12 Months, Have Used or Abuse Any Substance: None Previous Surgical History: Yes Type / Date of Surgery: STAPEES REPLACED BILAT EARS, LAZER SURGERY FOR DETACHED RETINA, T&A,EGD,COLONOSCOPY,BILATERAL CATARACTS Anesthesia Reactions: No Malignant Hyperthermia: No Significant Family History: Heart disease, Cancer Past Medical History Reviewed: Reviewed - No Changes ROS - Limitations ROS Limitations: No Limitations Constitution: REPORTS: Weakness. DENIES: Chills, Fever Cardiovascular: DENIES: Chest Pain (Generalized weakness), Heart Racing, Heart Palpitations, Blood Pressure Problem Respiratory: REPORTS: Cough Non Productive. DENIES: Shortness Of Breath Neurological: REPORTS: Dizziness, Difficulty Walking. DENIES: Headache, Numbness, Weakness Gastrointestinal: REPORTS: Diarrhea. DENIES: Abdominal Pain, Nausea, Vomitting Musculoskeletal: DENIES: Back Pain, Muscle Aches Genitourinary: REPORTS: Denies Symptoms Eyes: REPORTS: Denies Symptoms ENT: REPORTS: Denies Symptoms Skin: DENIES: Rash General Adult Exam - General Appearance General Appearance: POSITIVE: Alert, Cooperative, No Acute Distress - HEENT HEENT: POSITIVE: Head Inspection Nml, Eyes Inspection Nml, Ears Inspection Nml, Nose Inspection Nml, Pharynx Inspect. Nml, PERRL, EOMI, Dry Mucous Membranes - Neck Neck: POSITIVE: Normal Inspection, Lymphadenopathy - Respiratory Respiratory: POSITIVE: No Respiratory Distress, Breath Sounds Normal - Cardiovascular Cardiovascular: POSITIVE: Regular Rate & Rhythm, No Murmur Peripheral Pulses: Dorsalis-pedis (R): 2+, Dorsalis-pedis (L): 2+ - Abdomen Abdomen: Soft: (All Quadrants), Denies Tenderness: (All Quadrants) - Back Back: POSITIVE: Normal Inspection - Skin Skin: POSITIVE: Normal Color, No Rash - Extremities Extremity: Normal ROM: (All Extremities), Normal Inspection: (All Extremities) - Neurological / Psychological Neurological: POSITIVE: Oriented X3, learning and development associate Normal As Tested, Motor Normal, Sensation Normal, Other (No focal neurologic deficits detected at this time) General Adult Progress - Results Reviewed by me Xrays/CTs/US Reviewed by me: Yes Discussed with Radiologist: Yes Radiology Findings: Chest x-ray shows no acute abnormalities per radiologist. CT of the chest shows no evidence of PE, bilateral lower lobe atelectasis versus pneumonitis per radiologist. Lab Results Reviewed by Me: Yes Lab Results:: Laboratory Results 10/09/18 10/09/18 10/09/18 20:31 20:31 20:31 WBC RBC Hgb Hct MCV MCH MCHC RDW Std Deviation RDW Coeff of Alissa Plt Count MPV Immature Gran % (Auto) Neut % (Auto) Lymph % (Auto) [place] % (Auto) Eos % (Auto) Baso % (Auto) Immature Gran # (Auto) Neut # (Auto) Lymph # (Auto) [place] # (Auto) Eos # (Auto) Baso # (Auto) WBC Morphology Comment Plt Morphology Comment RBC Morph Comment D-Dimer 0.67 H Sodium Potassium Chloride Carbon Dioxide Anion Gap BUN Creatinine BUN/Creatinine Ratio Glucose Calculated Osmolality Lactic Acid Calcium Magnesium Total Bilirubin AST ALT Alkaline Phosphatase Troponin I < 0.012 C-Reactive Protein Total Protein Albumin Globulin Albumin/Globulin Ratio TSH 2.27 Ur Collection Type Urine Color Urine Clarity Urine pH Ur Specific [place] Urine Protein Urine Glucose (UA) Urine Ketones Urine Occult Blood Urine Nitrate Urine Bilirubin Urine Urobilinogen Ur Leukocyte Esterase Ur Culture Indicated? 10/09/18 10/09/18 10/09/18 20:31 20:31 20:31 WBC 11.67 H RBC 4.26 L Hgb 12.8 L Hct 39.3 L MCV 92.3 H MCH 30.0 MCHC 32.6 L RDW Std Deviation 46.1 RDW Coeff of Alissa 13.9 Plt Count 207 MPV 9.7 Immature Gran % (Auto) 0.2 Neut % (Auto) 85.2 H Lymph % (Auto) 5.0 L [place] % (Auto) 9.2 Eos % (Auto) 0.2 Baso % (Auto) 0.2 Immature Gran # (Auto) 0.02 Neut # (Auto) 9.96 Lymph # (Auto) 0.58 [place] # (Auto) 1.07 H Eos # (Auto) 0.02 Baso # (Auto) 0.02 WBC Morphology Comment Normal morphology Plt Morphology Comment Normal morphology RBC Morph Comment Normal morphology D-Dimer Sodium 134 L Potassium 4.9 Chloride 97 L Carbon Dioxide 26 Anion Gap 11 BUN 16 Creatinine 0.8 BUN/Creatinine Ratio 20.00 Glucose 158 H Calculated Osmolality 281.0 Lactic Acid Calcium 9.3 Magnesium 2.1 Total Bilirubin 0.6 AST 47 ALT 45 Alkaline Phosphatase 261 H Troponin I C-Reactive Protein 4.9 H Total Protein 6.9 Albumin 3.9 Globulin 3.0 Albumin/Globulin Ratio 1.30 TSH Ur Collection Type Urine Color Urine Clarity Urine pH Ur Specific [place] Urine Protein Urine Glucose (UA) Urine Ketones Urine Occult Blood Urine Nitrate Urine Bilirubin Urine Urobilinogen Ur Leukocyte Esterase Ur Culture Indicated? 10/09/18 10/09/18 21:05 22:35 WBC RBC Hgb Hct MCV MCH MCHC RDW Std Deviation RDW Coeff of Alissa Plt Count MPV Immature Gran % (Auto) Neut % (Auto) Lymph % (Auto) [place] % (Auto) Eos % (Auto) Baso % (Auto) Immature Gran # (Auto) Neut # (Auto) Lymph # (Auto) [place] # (Auto) Eos # (Auto) Baso # (Auto) WBC Morphology Comment Plt Morphology Comment RBC Morph Comment D-Dimer Sodium Potassium Chloride Carbon Dioxide Anion Gap BUN Creatinine BUN/Creatinine Ratio Glucose Calculated Osmolality Lactic Acid 1.2 Calcium Magnesium Total Bilirubin AST ALT Alkaline Phosphatase Troponin I C-Reactive Protein Total Protein Albumin Globulin Albumin/Globulin Ratio TSH Ur Collection Type Clean catch urine Urine Color Yellow Urine Clarity Clear Urine pH 8.5 Ur Specific [place] 1.015 Urine Protein Negative Urine Glucose (UA) Negative Urine Ketones Trace A Urine Occult Blood Negative Urine Nitrate Negative Urine Bilirubin Negative Urine Urobilinogen 0.2 Ur Leukocyte Esterase Negative Ur Culture Indicated? Culture not set CBC and BMP: 10/09/18 20:31 10/09/18 20:31 EKG Interpreted/Reviewed By Me:: Yes EKG Interpretation:: POSITIVE: Normal Sinus Rhythm, Normal Rate, Normal QRS, Normal ST/T - Patient's Progress MDM / ED Course: On arrival to the emergency department the patient is somewhat hypertensive, he does not exhibit any focal neurologic deficits currently. The patient was mildly orthostatic and received a fluid bolus. The patient was mildly hypoxic dipping down into the upper 80s on room air and was placed on O2 per nasal cannula. He does not normally wear oxygen at home. He did not have a fever on arrival. CT scan of his head shows no acute findings per radiologist. His EKG shows normal sinus rhythm with no acute ST segment or T-wave changes. Blood work reveals a mildly elevated white blood cell count and CRP. Because of the increased weakness and elevated white count/CRP, lactate and blood cultures were drawn. Chest x-ray showed some possible atelectasis versus infiltrate in the left lower lobe. His d-dimer was mildly elevated and subsequent CTA of the chest was ordered. This was negative for PE however did show bilateral atelectasis versus pneumonitis in the lower lobes per radiologist. Urinalysis was negative for infection. Given the patient's generalized weakness, hypoxia, elevated white count and findings on CT it is possible he may have an early pneumonia. The patient was given Rocephin and Zithromax. Decision was made to admit the patient for further care. The patient is discussed with Dr. Cornelius and he is agreed to admit the patient for further care. The patient is in agree ment with this plan. - Consult Counseled: POSITIVE: Patient, Family, RE: Lab Results, RE: Radiology Results, RE: DX Patient Care Time - Estimated PCT Patient Care Time (In Minutes): 50 Vital Signs - Recent Vital Signs Vital Signs: Vital Signs (Last 8 hours) Temp Pulse Pulse Pulse Pulse Pulse Resp 10/09/18 21:15 95 20 03/08/19 21:00 96 18 10/09/18 20:55 16 10/09/18 20:50 89 96 101 H 105 H 10 L 10/09/18 20:45 90 14 10/09/18 20:40 92 15 10/09/18 20:13 98.7 F 100 20 BP BP BP BP BP Pulse Ox 10/09/18 21:15 161/85 98 10/09/18 21:00 162/90 95 10/09/18 20:55 10/09/18 20:50 171/104 158/92 140/90 97 10/09/18 20:45 98 10/09/18 20:40 100 10/09/18 20:13 161/92 93 - VS Reviewed Vital Signs Reviewed: Yes Discharge Clinical Impression: Dizziness, Dehydration, Weakness, Hypoxia, Pneumonia Discharge Disposition: Admit to Inpatient Condition: Fair Follow Up With: MONI AYERS [Primary Care Provider] - Date Decision to Admit to Inpatient: 10/09/18 Time Decision to Admit to Inpatient: 23:35
--- NOTE | 2018-10-09 20:26 | EKG ---
[address] [place] [address] Measurements Intervals [place] Rate: 93 P: 59 NH: 187 QRS: 56 QRSD: 102 T: 66 QT: 333 QTc: 384 Interpretive Statements SINUS RHYTHM POSSIBLE LEFT ATRIAL ENLARGEMENT [-0.1mV P WAVE IN V1/V2] Compared to ECG 09/02/2018 20:40:00 No significant changes Electronically Signed On 10-10-18 15:39:37 MST by Dion Shabazz [email or web address]
[2018-10-09 20:32] LABS: BASOPHILS # (AUTO) 0.02 10*3/UL; BASOPHILS % (AUTO) 0.2 % (0-1); EOSINOPHILS # (AUTO) 0.02 10*3/UL; EOSINOPHILS % (AUTO) 0.2 % (0-8); Hematocrit [HCT] 39.3 % (42.0-52.0); Hemoglobin [HGB] 12.8 g/dL (14.0-18.0); LYMPHOCYTES # (AUTO) 0.58 10*3/uL; MEAN CORPUSCULAR HGB CONC 32.6 g/dL (33-37); MEAN CORPUSCULAR VOLUME 92.3 FL (80-90); MEAN PLATELET VOLUME 9.7 FL (7.4-12.2); MONOCYTES # (AUTO) 1.07 10*3/UL (0.3-0.8); MONOCYTES % (AUTO) 9.2 % (5-15); NEUTROPHILS # (AUTO) 9.96 10*3/UL; NEUTROPHILS % (AUTO) 85.2 % (50-80); RED BLOOD COUNT 4.26 10^6/uL (4.70-6.10)
[2018-10-09 20:44] LABS: PLATELET MORPHOLOGY COMMENT NORMAL MORPHOLOGY (NORM); RBC MORPHOLOGY COMMENT NORMAL MORPHOLOGY (NORM); WBC MORPHOLOGY COMMENT NORMAL MORPHOLOGY (NORM)
[2018-10-09 20:49] LABS: BLOOD UREA NITROGEN 16 mg/dL (7-22); SERUM ALBUMIN 3.9 g/dL (3.5-4.8)
--- NOTE | 2018-10-09 21:35 | DI ---
AP CHEST X-RAY, 10/09/2018 8:03 PM : Clinical History: Cough. Previous Exam: 07/23/2018. Soft Tissues: No acute soft tissue abnormality. Bones: Normal. Heart: Normal heart. Lungs: No infiltrates. Effusion(s): None. Mediastinum: Normal mediastinum. Nodules: No pulmonary nodules. Additional Findings: There is colon-hepatic interposition accounting for the gas present under the ri ght diaphragm. Reading: Normal chest x-ray.
[2018-10-09 22:35] LABS: BILIRUBIN,URINE NEGATIVE (NEG); CLARITY,URINE CLEAR (CLEAR); COLOR,URINE YELLOW (Y); GLUCOSE, URINE (UA) NEGATIVE (NEG); OCCULT BLOOD,URINE NEGATIVE (NEG); PH,URINE 8.5 (5.0-8.5); PROTEIN,URINE NEGATIVE (NEG); URINE SAMPLE TYPE CLEAN CATCH URINE; UROBILINOGEN,URINE 0.2 EU/dL (0.2)
--- NOTE | 2018-10-09 23:09 | DI ---
EXAM: CT Chest With Intravenous Contrast CLINICAL HISTORY: ITS.REASON hypoxia, elevated-dimer Physician Notes: Tech Comments: TECHNIQUE: Axial computed tomography images of the chest with intravenous contrast. MIP reconstructed images were created and reviewed. COMPARISON: No relevant prior studies available. FINDINGS: Lungs: No pulmonary embolus. Basilar atelectasis/pneumonitis. Pleural space: Unremarkable. No pneumothorax. No effusion. Heart: No cardiomegaly. No pericardial effusion. Bones/joints: Numerous right-sided rib fractures of different ages. Old left rib fracture as well . Old sternal fracture. Soft tissues: Unremarkable. Vasculature: Unremarkable. No thoracic aortic aneurysm. Lymph nodes: Mild mediastinal and hilar adenopathy. Calcified nodes present. Gallbladder and bile ducts: Cholecystectomy. Other findings: Old granulomatous disease. IMPRESSION: No pulmonary embolus.
[2018-10-09] MEDS ORDERED: cefTRIAXone Inj 1 GM in Sodium Chloride 0.9% 100 ML IV ONE (23:31)
--- NOTE | 2018-10-10 00:05 | PDOC ---
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 The patient said he is not feeling well the last 2 weeks. Today he had trouble getting up from the [place]. The caregiver said that the she came in tonight to [facility] on him as he wasn't feeling well in the morning and she found him standing in the [place] leaning against the wall and because of that they brought him to the hospital. He Had multiple investigations it showed elevated the white count and a CRP there was a question of pneumonitis on the CT and hence the admission. Patient received antibiotics and fluid and he feels better now compared to [facility]. Past Medical History Medical History: 1. Hypertension. 2. Hypothyroidism. 3. Osteoporosis. 4. Macular degeneration. 5. BPH. 6. Hearing loss. 7. Depression. 8. History of large fiber neuropathy. 9. Admission June 2018 for pneumothorax s econdary to a fall Surgical History: 1. Bilateral stapedectomy with replacement stapes. 2. Dilatation of distal esophagus. 3. Colonoscopy 2. Normal by report. 4. Bilateral cataract extractions. 5. Cholecystectomy Family History: Reviewed an Not Pertinent Past Social History: Patient lives by himself, doesn't drink, no drugs. Doesn't smoke. Tobacco Use: Never Smoker In the Past 12 Months, Have Used or Abuse Any of the Following Substance: None Medication / Allergies Home Medications: Home Medications Medication Instructions Recorded Confirmed Type Dorzolamide HCl/Timolol Maleat 1 drp OP BID 1 Days drp 10/25/11 10/10/18 History [Cosopt Eye Drops] Betaxolol HCl [Betoptic S] 2 drp OP BID 30 Days drp 09/22/12 10/10/18 History Tobramycin Sulf/Dexamethasone 1 drp OP q48 drp 02/17/17 10/10/18 History [Tobradex Eye Drops] denosumab 60 mg/mL subcutaneous 60 mg SUBCUT [id number] #1 ml 07/16/17 10/10/18 History syringe finasteride 5 mg tablet 5 mg PO QDAY tab 07/16/17 10/10/18 History ranibizumab 0.5 mg/0.05 mL 0.5 mg INVTRL QMONTH ml 07/16/17 10/10/18 History intravitreal solution for injection travoprost 0.004 % eye drops 1 drp OP QDAY drp 07/16/17 10/10/18 History lisinopril 5 mg tablet 5 mg PO QDAY #90 tab 03/23/18 10/10/18 Rx citalopram 20 mg tablet 30 mg PO QDAY #135 tab 05/20/18 10/10/18 Rx levothyroxine 75 mcg tablet 75 mcg PO QDAY #90 tab 07/07/18 10/10/18 Rx linaclotide 145 mcg capsule 145 mcg Capsule#10 Samples 07/15/18 10/10/18 Sample imipramine 10 mg tablet 10 mg PO ONCE tab 08/24/18 10/10/18 History imipramine 25 mg tablet 25 mg PO ONCE 08/24/18 10/10/18 History linaclotide 290 mcg capsule 290 mcg Cap#10 Samples 08/24/18 10/10/18 Sample Allergies/Adverse Reactions: Allergies Allergy/AdvReac Type Severity Reaction Status Date / Time banana Allergy NAUSEA Verified 10/09/18 19:58 Cucumbers Allergy Mild NAUSEA Uncoded 10/09/18 19:58 Melons Allergy Mild NAUSEA Uncoded 10/09/18 19:58 Review of Systems - Review of Systems All Systems: Reviewed & No Additional Complaints Except as Stated Exam - Vitals Vital Signs: Vital Signs Temperature 98.7 F Temperature Source Temporal Artery Scan Pulse Rate [Pulse Oximeter] 100 Pulse Rate [Lying] 96 Pulse Rate [Sitting] 101 Pulse Rate [Standing] 105 Pulse Rate 95 Respiratory Rate 20 Blood Pressure [Lying] 171/104 Blood Pressure [Sitting] 158/92 Blood Pressure [Standing] 140/90 Blood Pressure [Left Arm] 161/92 Blood Pressure 161/85 Pulse Ox 98 Oxygen Flow Rate 2 Oxygen Delivery Method Nasal Cannula Height 5 ft 7 in Weight 147 lb - General General Appearance: No Acute Distress, Cooperative - Head Head Exam: Normal Inspection - Eye Eye Exam: POSITIVE: Normal Appearance - ENT ENT Exam: POSITIVE: Normal Exam - Neck Neck Exam: Normal Inspection - Respiratory Respiratory Exam: POSITIVE: Clear to Auscultation - Bilaterally - Cardiovascular Cardiovascular Exam: POSITIVE: RRR - GI/Abdominal GI/Abdominal Exam: POSITIVE: Normal Bowel Sounds, Non Tender, Non Distended, Soft, No Organomegaly - Rectal Rectal Exam: POSITIVE: Deferred - External Exam: POSITIVE: Deferred Exam: POSITIVE: Deferred Results - Labs CBC and BMP: 10/10/18 04:32 10/09/18 20:31 - EKG Data -: EKG Interpreted by Me Rate: Normal EKG Shows Normal: Sinus Rhythm - Imaging Status: Report Reviewed by Me (CT chest Lungs: No pulmonary embolus. Basilar atelectasis/pneumonitis) Assessment and Plan - Patient Problems (1) Pneumonia Current Visit: Yes Status: Acute Comment: There is question of an early pneumonia on the CT he was started on antibiotics will continue antibiotics continue IV fluid. Will repeat his labs in the morning Code(s): J18.9 - Pneumonia, unspecified organism (2) Essential hypertension Current Visit: No Status: Acute Onset Date: 11/07/15 Comment: Same med Code(s): I10 - Essential (primary) hypertension (3) Hypothyroidism (acquired) Current Visit: No Status: Acute Onset Date: 10/23/11 Comment: Same med Code(s): E03.9 - Hypothyroidism, unspecified
[2018-10-10] MEDS ORDERED: LIDOCAINE W/ SODIUM BICARB 0.5 ML SYR SUBD PRN (00:54)
[2018-10-10] MEDS ORDERED: Sodium Chloride 0.9% 1,000 ML PRIMARY IV SCH (01:00)
[2018-10-10] MEDS: LEVOTHYROXINE 75 MCG TABLET PO SCH (04:39)
[2018-10-10 05:08] LABS: BASOPHILS # (AUTO) 0.02 10*3/UL; BASOPHILS % (AUTO) 0.2 % (0-1); EOSINOPHILS # (AUTO) 0.01 10*3/UL; EOSINOPHILS % (AUTO) 0.1 % (0-8); Hematocrit [HCT] 36.7 % (42.0-52.0); Hemoglobin [HGB] 11.9 g/dL (14.0-18.0); LYMPHOCYTES # (AUTO) 1.27 10*3/uL; MEAN CORPUSCULAR HEMOGLOBIN 29.7 PG (27-31); MEAN CORPUSCULAR HGB CONC 32.4 g/dL (33-37); MEAN CORPUSCULAR VOLUME 91.5 FL (80-90); MEAN PLATELET VOLUME 10.5 FL (7.4-12.2); MONOCYTES # (AUTO) 1.24 10*3/UL (0.3-0.8); MONOCYTES % (AUTO) 11.1 % (5-15); NEUTROPHILS # (AUTO) 8.66 10*3/UL; NEUTROPHILS % (AUTO) 77.2 % (50-80); RED BLOOD COUNT 4.01 10^6/uL (4.70-6.10)
[2018-10-10 05:13] LABS: PLATELET MORPHOLOGY COMMENT NORMAL MORPHOLOGY (NORM); RBC MORPHOLOGY COMMENT NORMAL MORPHOLOGY (NORM); WBC MORPHOLOGY COMMENT NORMAL MORPHOLOGY (NORM)
--- NOTE | 2018-10-10 08:13 | DI ---
EXAM: CT Head Without Intravenous Contrast CLINICAL HISTORY: ITS.REASON weakness, dizziness Physician Notes: Tech Comments: TECHNIQUE: Axial computed tomography images of the head/brain without intravenous contrast. COMPARISON: No relevant prior studies available. FINDINGS: Brain: No hemorrhage. No edema. Ventricles: No ventriculomegaly. Bones/joints: No acute fracture. Soft tissues: Unremarkable. Sinuses: No acute sinusitis. Mastoid air cells: No mastoid effusion. Orbits: Cataract surgery. IMPRESSION: No acute intracranial process.
[2018-10-10] MEDS: FINASTERIDE 5 MG TABLET PO SCH (08:54)
[2018-10-10] MEDS: CITALOPRAM 20 MG TABLET PO SCH (08:54)
[2018-10-10] MEDS: LISINOPRIL 5 MG TABLET PO SCH (08:54)
[2018-10-10] MEDS ORDERED: ASCORBIC ACID Chewable 500 MG TABLET PO SCH (09:00)
--- NOTE | 2018-10-10 09:16 | PDOC(PROG) ---
Date of Service: 10/10/18 Time of Service: 09:20 Interval History: Subjective Patient feels better today compared to the last night. He feels stronger. He is denying other symptoms. No significant cough no shortness of breath. Objective : Data - Labs CBC and BMP: 10/10/18 04:32 10/09/18 20:31 Objective : Exam - General General Appearance: No Acute Distress, Cooperative, Thin - Head Head Exam: Normal Inspection - Eye Eye Exam: Normal Appearance - ENT ENT Exam: Normal Exam - Neck Neck Exam: Normal Inspection - Respiratory Additional Respiratory Exam Details: Decreased air entry otherwise clear - Cardiovascular Cardiovascular Exam: RRR - GI/Abdominal GI/Abdominal Exam: Normal Bowel Sounds, Non Tender, Non Distended, Soft, No Organomegaly - Rectal Rectal Exam: Deferred - External Exam: Deferred - Extremities Extremities Exam: Normal Inspection - Back Back Exam: Normal Inspection - Neurological Neurological Exam: Alert, Oriented x 3, CN II-XII Intact, No Facial Droop, Speech Intact / Clear - Psychiatric Psychiatric Exam: Normal Affect Assessment and Plan - Patient Problems (1) Pneumonia Current Visit: Yes Status: Acute Comment: Continue current antibiotics. I think we'll stop his IV fluid will watch him another night probably home tomorrow. Code(s): J18.9 - Pneumonia, unspecified organism (2) Essential hypertension Current Visit: No Status: Acute Onset Date: 11/07/15 Comment: Same med Code(s): I10 - Essential (primary) hypertension (3) Hypothyroidism (acquired) Current Visit: No Status: Acute Onset Date: 10/23/11 Comment: Same med Code(s): E03.9 - Hypothyroidism, unspecified
[2018-10-10] MEDS ORDERED: cefTRIAXone Inj 2 GM in Sodium Chloride 0.9% 100 ML IV SCH (22:00)
[2018-10-10] MEDS ORDERED: AZITHROMYCIN 500 MG VIAL IV ONE ×2 (22:32→22:33)
[2018-10-11 04:19] LABS: BASOPHILS # (AUTO) 0.03 10*3/UL; BASOPHILS % (AUTO) 0.4 % (0-1); EOSINOPHILS # (AUTO) 0.08 10*3/UL; EOSINOPHILS % (AUTO) 1.1 % (0-8); Hematocrit [HCT] 36.2 % (42.0-52.0); Hemoglobin [HGB] 11.4 g/dL (14.0-18.0); LYMPHOCYTES # (AUTO) 1.26 10*3/uL; MEAN CORPUSCULAR HGB CONC 31.5 g/dL (33-37); MEAN CORPUSCULAR VOLUME 92.1 FL (80-90); MEAN PLATELET VOLUME 10.2 FL (7.4-12.2); MONOCYTES # (AUTO) 0.78 10*3/UL (0.3-0.8); MONOCYTES % (AUTO) 10.3 % (5-15); NEUTROPHILS # (AUTO) 5.44 10*3/UL; NEUTROPHILS % (AUTO) 71.5 % (50-80); RED BLOOD COUNT 3.93 10^6/uL (4.70-6.10)
[2018-10-11 04:33] LABS: PLATELET MORPHOLOGY COMMENT NORMAL MORPHOLOGY (NORM); RBC MORPHOLOGY COMMENT NORMAL MORPHOLOGY (NORM); WBC MORPHOLOGY COMMENT NORMAL MORPHOLOGY (NORM)
[2018-10-11 04:34] LABS: BLOOD UREA NITROGEN 11 mg/dL (7-22); BUN/CREATININE RATIO 15.71 (6-20)
[2018-10-11] MEDS: LEVOTHYROXINE 75 MCG TABLET PO SCH (04:38)
[2018-10-11 07:55] VITALS: BP 154/80; RESP 18; TEMP 97.4
[2018-10-11] MEDS: FINASTERIDE 5 MG TABLET PO SCH (08:53)
[2018-10-11] MEDS: LISINOPRIL 5 MG TABLET PO SCH (08:54)
[2018-10-11] MEDS: CITALOPRAM 20 MG TABLET PO SCH (08:54)
--- NOTE | 2018-10-11 10:43 | DCSUMMARY ---
Hospitalization Summary Admit Date: 10/10/2018 Discharge Date: 10/11/18 Hospital Course: Discharge diagnoses 1. Early pneumonia 2. History of hypertension 3. History of Large fiber neuropathy 4. Hypothyroidism 5. Osteoporosis 6. Macular degeneration 7. BPH 8. Depression Hospital course This is an 77 years old male with medical history significant for history of large nerve neuropathy that affected his gait, history of hypertension, history of BPH who was brought to the hospital for evaluation because of weakness. The patient said he was not feeling well the last 2 weeks. On the day of admission he had trouble getting up from the couch. The caregiver said that when she came in the night of admission to check on him as he was not feeling good that morning he was standing in the [place]ne leaning against the wall and because of that they brought him to the hospital. Had Multiple investigation which showed elevated white count, CRP was also elevated, he was hypoxic, there was question also of pneumonitis on CT and hence the admission. Patient received antibiotics and fluids and was admitted. His exam was remarkable for weakness in his legs but old. With antibiotics and fluid he started to feel better. On the day off discharge he was feeling a lot better he said. He was assessed by physical therapy and they felt that he's safe to be discharged home. We'll arrange for him home health PT, will discharge him on oral antibiotics. He need follow-up with his primary. Laboratory Results 10/11/18 10/11/18 04:00 04:00 WBC 7.60 RBC 3.93 L Hgb 11.4 L Hct 36.2 L MCV 92.1 H MCH 29.0 MCHC 31.5 L RDW Std Deviation 47.1 RDW Coeff of Alissa 14.1 Plt Count 189 MPV 10.2 Immature Gran % (Auto) 0.1 Neut % (Auto) 71.5 Lymph % (Auto) 16.6 Rains % (Auto) 10.3 Eos % (Auto) 1.1 Baso % (Auto) 0.4 Immature Gran # (Auto) 0.01 Neut # (Auto) 5.44 Lymph # (Auto) 1.26 Rains # (Auto) 0.78 Eos # (Auto) 0.08 Baso # (Auto) 0.03 WBC Morphology Comment Normal morphology Plt Morphology Comment Normal morphology RBC Morph Comment Normal morphology Sodium 138 Potassium 3.9 Chloride 106 Carbon Dioxide 27 Anion Gap 5 BUN 11 Creatinine 0.7 BUN/Creatinine Ratio 15.71 Glucose 93 Calculated Osmolality 284.0 Calcium 8.3 L Discharge instruction Diet regular Activity as tolerated Medications Current Medication(s) Medication Instructions Recorded Confirmed Type Dorzolamide HCl/Timolol Maleat 1 drp OP BID 1 Days drp 10/25/11 10/10/18 History [Cosopt Eye Drops] Betaxolol HCl [Betoptic S] 2 drp OP BID 30 Days drp 09/22/12 10/10/18 History Tobramycin Sulf/Dexamethasone 1 drp OP q48 drp 02/17/17 10/10/18 History [Tobradex Eye Drops] denosumab 60 mg/mL subcutaneous 60 mg SUBCUT [id number] #1 ml 07/16/17 10/10/18 History syringe finasteride 5 mg tablet 5 mg PO QDAY tab 07/16/17 10/10/18 History ranibizumab 0.5 mg/0.05 mL 0.5 mg INVTRL QMONTH ml 07/16/17 10/10/18 History intravitreal solution for injection travoprost 0.004 % eye drops 1 drp OP QDAY drp 07/16/17 10/10/18 History lisinopril 5 mg tablet 5 mg PO QDAY #90 tab 03/23/18 10/10/18 Rx citalopram 20 mg tablet 30 mg PO QDAY #135 tab 05/20/18 10/10/18 Rx levothyroxine 75 mcg tablet 75 mcg PO QDAY #90 tab 07/07/18 10/10/18 Rx linaclotide 145 mcg capsule 145 mcg Capsule#10 Samples 07/15/18 10/10/18 Sample imipramine 10 mg tablet 10 mg PO ONCE tab 08/24/18 10/10/18 History imipramine 25 mg tablet 25 mg PO ONCE 08/24/18 10/10/18 History linaclotide 290 mcg capsule 290 mcg Cap#10 Samples 08/24/18 10/10/18 Sample Amoxicillin/Potassium Clav 1 ea PO BID #6 tab 10/11/18 Rx [Augmentin 875-125 Tablet] Azithromycin [Zithromax] 250 mg PO DAILY #3 tab 10/11/18 Rx Follow-up with PCP in 1-2 weeks Condition at discharge was stable for discharge Exam - Vitals Vital Signs: Vital Signs Temperature 97.4 F Temperature Source Temporal Artery Scan Pulse Rate [Pulse Oximeter] 89 Pulse Rate [Lying] 96 Pulse Rate [Sitting] 101 Pulse Rate [Standing] 105 Pulse Rate 100 Respiratory Rate 18 Blood Pressure [Lying] 171/104 Blood Pressure [Sitting] 158/92 Blood Pressure [Standing] 140/90 Blood Pressure [Left Arm] 154/80 Blood Pressure 177/106 Pulse Ox 97 Oxygen Flow Rate 1 Oxygen Delivery Method Nasal Cannula Height 5 ft 7 in Weight 168 lb 3.2 oz - General General Appearance: No Acute Distress, Thin - Head Head Exam: Normal Inspection, Atraumatic - Eye Eye Exam: POSITIVE: Normal Appearance - ENT ENT Exam: POSITIVE: Normal Exam - Neck Neck Exam: Normal Inspection - Respiratory Respiratory Exam: POSITIVE: Clear to Auscultation - Bilaterally - Cardiovascular Cardiovascular Exam: POSITIVE: RRR - GI/Abdominal GI/Abdominal Exam: POSITIVE: Normal Bowel Sounds, Non Tender, Non Distended, Soft - Rectal Rectal Exam: POSITIVE: Deferred - External Exam: POSITIVE: Deferred - Extremities Extremities Exam: POSITIVE: Normal Inspection - Back Back Exam: POSITIVE: Normal Inspection - Neurological Neurological Exam: POSITIVE: Alert, Oriented x 3, CN II-XII Intact, No Facial Droop, Speech Intact / Clear Additional Neurological Exam Details: Subtle weakness in the left lower extremities more on the left compared to the right. Reflexes are depressed. - Psychiatric Psychiatric Exam: POSITIVE: Normal Affect Patient Problems - Patient Problem List (1) Pneumonia Current Visit: Yes Status: Acute Code(s): J18.9 - Pneumonia, unspecified organism Category: Medical (2) Essential hypertension Current Visit: No Status: Acute Onset Date: 11/07/15 Code(s): I10 - Essential (primary) hypertension Category: Medical (3) Hypothyroidism (acquired) Current Visit: No Status: Acute Onset Date: 10/23/11 Code(s): E03.9 - Hypothyroidism, unspecified Category: Medical
--- NOTE | 2018-10-11 11:29 | PT.PROG ---
Progress Note Progress Note: S: Pt. states he feels he is ready to go home. Discussed possible home health for continued strengthening upon d/c. Patient was in agreeance to this. O: Treatment consisted of functional activities: ambulated around nurses station x 1 lap with use of FWW and CGA x 1. B LE 10x each: laq, slr, hip ab/ad, standing marches, single leg stance b x 5 seconds. Pt. was left in recliner with call button and nursing notified. A: Pt. overall continue to perform activities well. He is improving with strength and activity tolerance daily. He still presents with balance deficits, but this is his baseline with balance. He is aware of his deficits and does well adapting to them. He should do well upon d/c with home health as well as his [facility] home care. P: Continue per POC unless otherwise d/c from facility. Radha Jc, [employer]
[2018-10-11 12:38] VITALS: O2SAT 98
--- NOTE | 2018-10-12 10:33 | PTI REPORT ---
Thank you for the referral of Kelton Persaud. He was seen on 10/10/18 for an inpatient evaluation secondary to weakness. SUBJECTIVE: The patient is a 77-year-old male. The patient reports that he doesn't have any pain. The patient reports that he lives at home in a house by himself. He uses a front wheeled walker to get around. The patient has one step to get into his home and has home health assistance. PAST MEDICAL HISTORY: Past medical history can be found in the patient's medical record. OBJECTIVE FINDINGS: General observations: The patient demonstrated normal and intact dermatomes to bilateral lower extremities and normal myotomes to bilateral lower extremities. Transfers: The patient requires contact guard assist x1 for sit to stand transfer. Ambulation: The patient requires contact guard to min assist x1 for gait due to balance concerns. The patient required mod to max cues for technique in order to keep walker in close proximity. The patient demonstrates a shuffling gait pattern and tends to have right lower extremity drag while ambulating. Oxygen: The patient is on 1 liter of oxygen. ASSESSMENT: The patient is a 77-year-old male that presents with generalized weakness, balance concerns, and deficits. The patient would benefit from skilled therapy in order to improve strength, balance, and overall functional mobility. The patient's prognosis for therapy is fair. Problem List: Decreased strength Decreased functional mobility Decreased endurance Short-Term Goals: To be met by discharge from inpatient: Patient will be independent with all transfers with least restrictive assistive device. Patient will be able to ambulate 300 feet with his walker in order to improve functional mobility. Patient will be able to tolerate 30 minutes of activity to improve overall endurance and functional mobility. Long-Term Goals: To be met following discharge from inpatient: Patient will be able to return to prior level of function and may benefit from skilled therapy in an outpatient setting. TREATMENT PLAN: Patient will be seen B.I.D during the week and one time per day over the weekend as an inpatient for therapeutic exercise, functional activity, neuromuscular reeducation, and gait training. INITIAL TREATMENT: Treatment today consisted of the initial evaluation. The patient was instructed to ambulate approximately [id number] feet with contact guard to min assist x1 with walker and mod to max cues for technique for safety. Following treatment the patient was left in chair with chair alarm activated and call light within reach. MTDD
== END 2018-10-11 12:35 | disposition home or self-care (01) | DRG 195 ==
LOC: ER 19:58 → MED/SURG 23:56
PROVIDERS: ADMIT Internal Medicine; ATTEND Internal Medicine